=== PATIENT | female | born 1985 | race Caucasian/White ===

== ENCOUNTER 2018-02-02 09:00 | Outpatient (RCR) | payer MEDICAID, SELFPAY ==
--- NOTE | 2018-01-05 10:00 | PTTR_ITS ---
DATE: 01/05/18 SUBJECTIVE: Susan states that her back pain seems to be increasing. She attributes this to some changes that have been going on with her health in general. She has been seeing a natural path who placed her on a couple of different supplements. One of which caused her a great deal of anxiety. She states because of this, she was having trouble being regular with her exercise program and feels that this has contributed to an increase in her back pain. She is now off the supplement and is starting to feel better, stating she is trying to get back on track with her exercise program, as she feels good improvements with pain management with this. Manual therapy: ([id number]). Patient received deep tissue mobilization throughout the cervical and paraspinal musculature focused on L rhomboids and lower trap where she received skin rolling techniques and myofascial stretching. She also received modified suboccipital release and trigger point release to bilateral upper traps. IDN: for charles services; Received non-reimbursable charles payment dry needling as follows: PA's C3-T8 bilaterally, HAs spinal accessory bilaterally, suprascapular bilaterally, SAs upper trap bilaterally and L rhomboids. Direct treatment time: 30 mins Total treatment time: 30 mins SS/dl
--- NOTE | 2018-01-12 11:13 | PTTR_ITS ---
DATE: 01/12/18 SUBJECTIVE: Susan states that she has had ups and downs with her back. She feels that the exercises make a big difference, although she is concerned about whether this is going to be a correction issue for her. OBJECTIVE: Manual therapy: ([id number]).Pt received DTM throughout the parascapular musculature and into the cervical spine.She received trigger point release to the upper traps bilaterally, as well as grade IV thoracic spine mobilizations to the midthoracic segments. IDN: Pt received DN for charles services as follows: PAs C1-7 and T1-8 bilaterally , HAs, spinal accessory and suprascapular bilaterally, HAs bilateral upper traps and rhomboids in functionally internally rotated position, all performed bilaterally. Direct treatment time: 35 min Total treatment time: 35 min SS/fw
--- NOTE | 2018-01-18 08:00 | NT_ITS ---
01/17/18 Patient did not show for her appt SS/dl
--- NOTE | 2018-01-26 16:23 | PTTR_ITS ---
DATE: 01/26/18 SUBJECTIVE: Susan states that her back was incredibly painful last week. She , in fact, went and had an acupuncture session, although did not note any significant improvement with this. She went on vacation directly afterwards and states that during that week, she was essentially pain free.She attributes this to being in a different bed and also having a great deal of assistance with care for her son.She states that she was not sleeping in her normal position and wasn't carrying him or nursing him nearly as much as she typically would. OBJECTIVE: Manual therapy: ([id number]).We deferred on dry needling today and instead focused on manual mobilization and progression of her strengthening program as symptoms are well managed today.She received grade IV thoracic spine mobilizations, where she achieves cavitations at 2 levels with the mid-thoracic spine. She also received connective tissue mobilization through the paraspinals and scap thoracic joint mobilizations through all planes, eventually transitioning to a sustained lateral glide with good tolerance. Therapeutic procedures ([id number]).We reviewed pts HEP. She was able to perform a full plank position x 20 sec. with only need for only minimal tactile and verbal cues for cervical positioning and transverse abdominal activation. We reviewed her UE strengthening activities, which she is comfortable with, and understands she can progress to use of Therabrand. Also had her perform lifting activities, where again she requires verbal and tactile cues, although with excellent technique resulting. Will have her continue with these independently and follow-up next week for re-eval and progression. Direct treatment time: 30 min Total treatment time: 30 min SS/fw
== END 2018-02-02 23:59 | disposition home or self-care (01) ==
LOC: PT 09:00
PROVIDERS: PCP General Practice; Referring Provider Advanced Practice Midwife; Visit Provider Advanced Practice Midwife
DX: M54.6 Pain in thoracic spine (principal); M79.89 Other specified soft tissue disorders; M65.811 Other synovitis and tenosynovitis, right shoulder
CPT/HCPCS: 97110; 97140

== ENCOUNTER 2018-06-26 12:27 | Outpatient (REF) | payer MEDICAID, SELFPAY | END 2018-06-26 12:47 | LOC: LBN 12:27 | PROVIDERS: PCP General Practice; Visit Provider General Practice | DX: J02.9 Acute pharyngitis, unspecified (principal) | CPT/HCPCS: 87081 ==

== ENCOUNTER 2018-12-22 10:25 | Emergency (ER) | payer MEDICAID, SELFPAY ==
[2018-12-22 10:36] VITALS: BP 125/75; PULSE 82; RESP 16; TEMP 37.2; O2SAT 99
--- NOTE | 2018-12-22 11:22 | DI.CT_ITS ---
SYMPTOM/DIAGNOSIS: POSTERIOR RIGHT SHOULDER PAIN. CT ANGIOGRAPHY OF THE CHEST: Routine examination, no priors. There is no evidence of a pulmonary embolus. The thoracic aorta is of normal caliber. No aneurysm or dissection is seen. Heart size is within normal limits. No significant pericardial effusion is seen. No evidence of right ventricular dysfunction is present. No evidence of thoracic adenopathy, pleural effusion or pneumothorax is identified. The lungs are clear. Soft tissue is seen in the anterior mediastinum likely reflecting residual thymic tissue. The bones are intact. No acute upper abdominal abnormality is identified. IMPRESSION: No evidence of an acute pulmonary embolus, thoracic aortic dissection or aneurysm.
--- NOTE | 2018-12-22 11:22 | W.ED.GENAD ---
Discharge Plan Disposition Patient Disposition: HOME Discharge Details Chief Complaint: Orthopedic Clinical Impression: Right shoulder pain Primary Care Provider: Alejandro Gil ED Provider: Justino Aguirre Home Meds and New Rx's Prescriptions: Continued methadone 42 mg DAILY RF: 0 flaxseed oil RF: 0 ibuprofen 600 MG tablet 600 mg PO Q6H PRN PRN (Reason: Abdominal Pain) Qty: 30 RF: 1 Discharge Instructions Instructions: Shoulder Pain (ED) Additional Instructions: Please contact your primary care physician to arrange follow-up. Return to the ER for any worsening or new concerning symptoms. Referrals: Alejandro Gil MD [Primary Care Provider] - Discharge Data Discharge Date/Time-TO BE ENTERED AT DEPARTURE: 12/22/18 14:02 Medical Decision Making 33-year-old female here with 1 week of throbbing pain in her right scapula and shoulder. Abdominal exam is benign. Lungs clear to auscultation. Patient saturating well in no respiratory distress. Patient did have recent long distance travel. I considered pulmonary embolism given there is somewhat of a pleuritic component to pain. ECG reviewed and interpreted by me: Normal sinus rhythm 67 bpm, normal axis, occasional PVC -nondiagnostic. Labs reviewed and nondiagnostic. CT of the chest was interpreted by radiology: no specific etiology identified for the patient's symptoms. No evidence of pulmonary embolism. Pain was treated with lidocaine patch and Tylenol. On reassessment patient was resting comfortably in no distress. Results were reviewed with the patient. Patient was encouraged to follow-up with her primary care physician. Patient understands importance of timely follow-up. Encouraged to return for any worsening or new concerning symptoms. Lab Data Lab results reviewed: Yes I reviewed the patient's lab results. Laboratory Tests Range/Units 12/22/18 12/22/18 11:41 11:41 WBC (4.4-10.8) k/cumm 8.98 RBC (4.00-5.20) m/cumm 4.94 Hgb (12.0-15.5) g/dL 15.0 Hct (36.0-46.0) % 43.5 MCV (80-95) fL 88.1 MCH (27.0-33.0) pg 30.4 MCHC (32.0-36.0) g/dL 34.5 RDW (11.7-14.6) % 12.3 Plt Count (130-400) x1000/uL 236 MPV (8.0-11.0) fL 9.7 Immature Gran % 0.1 Neutrophils % 62.6 Lymphocytes % 31.2 Monocytes % 5.3 Eosinophils % 0.6 Basophils % 0.2 Absolute Neutrophils (1.2-6.7) k/cumm 5.62 Absolute Lymphocytes (1.2-3.4) k/cumm 2.80 Absolute Monocytes (0.11-0.7) k/cumm 0.48 Absolute Eosinophils (0.0-0.7) k/cumm 0.05 Absolute Basophils (0.0-0.2) k/cumm 0.02 Sodium (136-145) mmol/L 141 Potassium (3.5-5.1) mmol/L 3.9 Chloride (98-107) mmol/L 106 Carbon Dioxide (21.0-32.0) mmol/L 25.2 Anion Gap (3-11) mmol/L 9.8 BUN (7-18) mg/dL 14 Creatinine (0.55-1.02) mg/dL 0.79 Estimated GFR/1.73 m2 (mL/min/1.73m2) >= 60.00 Glucose (70-100) mg/dL 101 H Calcium (8.5-10.1) mg/dL 9.2 Magnesium (1.8-2.4) mg/dL 2.0 Total Bilirubin (0.2-1.0) mg/dL 0.4 AST (15-37) U/L 7 L ALT (12-78) U/L 19 Alkaline Phosphatase (46-116) U/L 68 Troponin I (0.00-0.06) ng/mL < 0.05 Total Protein (6.4-8.2) g/dL 7.5 Albumin (3.4-5.0) g/dL 4.2 HPI General Mode of arrival: ambulatory. Date/Time Provider Initiated Documentation: 12/22/18 11:06. Limitations to Documentation: no limitations. Information obtained by: patient. HPI Narrative: 33-year-old female presents with chief complaint of with pain in her right scapula and shoulder. Pain started about a week ago and has persisted. Pain is described as throbbing. Pain worse with certain positions of her right arm. Patient does not recall any specific trauma. She does note that she had recent long distance travel and discomfort started after this travel. She has no associated shortness of breath but does note that the pain seems to be in her right posterior lateral upper chest and shoulder blade as well intermittently. No leg swelling or calf pain. No abdominal pain. Related Data Home Medications Medication Instructions Recorded Confirmed Methadone 42 mg DAILY 07/31/15 12/22/18 Flaxseed Oil 02/24/17 06/11/18 ibuprofen 600 mg PO Q6H PRN PRN #30 tab 08/09/17 12/22/18 Previous Rx's Medication Instructions Recorded ibuprofen 600 mg PO Q6H PRN PRN #30 tab 08/09/17 Allergies Allergy/AdvReac Type Severity Reaction Status Date / Time No Known Allergies Allergy Unverified 12/22/18 10:40 General Stated Complaint: Orthopedic KENDRA: 3 Review of Systems Review of Systems All systems reviewed & are unremarkable except as noted in HPI and below Cardiovascular Denies chest pain Respiratory Reports as per HPI, Denies cough and Denies hemoptysis Gastrointestinal Reports as per HPI Musculoskeletal Reports as per HPI Integumentary/Breasts Denies rash [facility] Medical History Oligomenorrhea Opiate dependence PCO (polycystic ovaries) Surgical History section (08/06/17) Dilation and curettage Family History Grandmother Endometriosis Maternal Aunt Endometriosis Maternal Aunt Endometriosis Grandfather Myocardial infarction Mother Substance abuse Alcohol abuse Father No problems noted. Sister Mental disorder Sister No problems noted. Sister No problems noted. Sister No problems noted. Brother Substance abuse Alcohol abuse Brother No problems noted. Brother No problems noted. Social History Smoking/Tobacco Use Status: Current every day Tobacco Type: cigarettes Alcohol Intake: never Drug use: Never Substance use type: does not use Do you feel safe at home: Yes Do you feel safe in your relationship?: Yes Exam Const General: cooperative and no acute distress HENMT Head: normocephalic Mouth: moist mucous membranes Eyes Conjunctivae: normal conjunctivae Sclera: normal sclerae Neck Neck: trachea midline and supple Resp Auscultation: clear to auscultation bilaterally, no rales, no rhonchi and no wheezes Cardio Jugular venous pressure: no JVD Rate: regular rate and not tachycardic Rhythm: regular rhythm GI Palpation: soft, not firm, no guarding, no masses, not rigid and nontender Skin General skin exam: no rashes or lesions noted Neuro General: alert, awake, oriented x3 and tone normal Extrem General: no calf tenderness and no edema Right upper extremity: shoulder/upper arm (Pain with shoulder elevation and abduction ) Psych Appearance: grossly normal Affect: anxious affect Course Vital Signs Temperature 37.2 C 12/22/18 10:36 Pulse 82 12/22/18 10:36 Respiratory Rate 16 12/22/18 10:36 Blood Pressure 125/75 12/22/18 10:36 Pulse Oximetry 99 12/22/18 10:36 Temperature 37.2 C 12/22/18 10:36 Temperature Source Temporal Artery Scan 12/22/18 10:36 Pulse 82 12/22/18 10:36 Respiratory Rate 16 12/22/18 10:36 Respiratory Effort Non-Labored 12/22/18 10:38 Blood Pressure 125/75 12/22/18 10:36 Pulse Oximetry 99 12/22/18 10:36 Oxygen Delivery Method Room Air 12/22/18 10:36 Oxygen Flow Rate 0 12/22/18 10:36 Pain Level 8 12/22/18 10:36
[2018-12-22] MEDS: Acetaminophen 325 MG TAB 650 MG PO (11:34)
[2018-12-22] MEDS: Lidocaine 5% Patch 1 PATCH TP (11:34)
--- NOTE | 2018-12-22 11:45 | NUR.NOTE ---
iv placed ekg performed Nursing Note:
[2018-12-22 11:49] LABS: Abs Immature Grans 0.01 k/cumm (0.0-0.09); Absolute Basophil Count 0.02 k/cumm (0.0-0.2); Absolute Eosinophil Count 0.05 k/cumm (0.0-0.7); Absolute Monocyte Count 0.48 k/cumm (0.11-0.7); Absolute Neutrophil Count 5.62 k/cumm (1.2-6.7); Basophils % 0.2; Eosinophils % 0.6; HCT 43.5 % (36.0-46.0); Immature Grans % 0.1; Lymphocytes % 31.2; Mean Corp. HGB Concentration 34.5 g/dL (32.0-36.0); Mean Corpuscular Hemoglobin 30.4 pg (27.0-33.0); Mean Corpuscular Volume 88.1 fL (80-95); Mean Platelet Volume 9.7 fL (8.0-11.0); Monocytes % 5.3; Neutrophils % 62.6; Platelet Count 236 x1000/uL (130-400); RBC 4.94 m/cumm (4.00-5.20); RBC Distribution Width 12.3 % (11.7-14.6); White Blood Cell Count 8.98 k/cumm (4.4-10.8)
[2018-12-22 12:07] LABS: ALT 19 U/L (12-78); AST 7 U/L (15-37); Albumin 4.2 g/dL (3.4-5.0); Alkaline Phosphatase 68 U/L (46-116); Anion Gap 9.8 mmol/L (3-11); BUN 14 mg/dL (7-18); Bilirubin, Total 0.4 mg/dL (0.2-1.0); CO2 25.2 mmol/L (21.0-32.0); CREATININE 0.79 mg/dL (0.55-1.02); Calcium 9.2 mg/dL (8.5-10.1); Chloride 106 mmol/L (98-107); Glucose 101 mg/dL (70-100); Potassium 3.9 mmol/L (3.5-5.1); Sodium 141 mmol/L (136-145); Total Protein 7.5 g/dL (6.4-8.2)
[2018-12-22 12:17] LABS: Troponin I < 0.05 ng/mL (0.00-0.06)
--- NOTE | 2018-12-22 13:31 | DI.VRAD_ITS ---
EXAM: CT Angiography Chest With Contrast EXAM DATE/TIME: 12/22/2018 11:25 AM CLINICAL HISTORY: 33 years old, female; Other: Posterior right shoulder pain TECHNIQUE: Imaging protocol: Axial computed tomographic angiography images of the chest with intravenous contrast using CT angiography protocol. Coronal and sagittal reformatted images were created and reviewed. 3D rendering: MIP reconstructed images were created and reviewed. Contrast material: OMNI 350; Contrast volume: 100 ml; Contrast route: IV; COMPARISON: No relevant prior studies available. FINDINGS: No evidence of PE. No significant focal consolidation. No pleural effusion. No pneumothorax. No adenopathy. Unremarkable upper abdomen. No acute mediastinal or aortic abnormality. IMPRESSION: No specific etiology identified for the patient's symptoms. Dictated and Authenticated by: Chandan Jo MD. Ordering:EFFIE Badillo MD
== END 2018-12-22 14:02 | disposition home or self-care (01) ==
PROVIDERS: Emergency Provider Student in an Organized Health Care Education/Training Program; PCP General Practice
DX: M25.511 Pain in right shoulder (principal)
CPT/HCPCS: 71275; 80053; 81025; 93005; 99285; 83735; 84484; 85025; 93010; 99284

== ENCOUNTER 2019-11-20 03:43 | Outpatient (CLI) | payer MEDICAID, SELFPAY ==
[2019-11-20 15:08] LABS: Abs Immature Grans 0.01 k/cumm (0.0-0.09); Absolute Basophil Count 0.01 k/cumm (0.0-0.2); Absolute Eosinophil Count 0.11 k/cumm (0.0-0.7); Absolute Lymphocyte Count 3.35 k/cumm (1.2-3.4); Absolute Monocyte Count 0.52 k/cumm (0.11-0.7); Absolute Neutrophil Count 4.21 k/cumm (1.2-6.7); Basophils % 0.1; Eosinophils % 1.3; HGB 15.2 g/dL (12.0-15.5); Immature Grans % 0.1 %; Lymphocytes % 40.8; Mean Corp. HGB Concentration 34.5 g/dL (32.0-36.0); Mean Corpuscular Hemoglobin 30.5 pg (27.0-33.0); Mean Corpuscular Volume 88.4 fL (80-95); Mean Platelet Volume 9.8 fL (8.0-11.0); Monocytes % 6.3; Neutrophils % 51.4; Platelet Count 271 x1000/uL (130-400); RBC 4.98 m/cumm (4.00-5.20); RBC Distribution Width 12.2 % (11.7-14.6); White Blood Cell Count 8.21 k/cumm (4.4-10.8)
[2019-11-20 16:05] LABS: Iron 94 ug/dL (50-170); Total Iron Binding Capacity 329 ug/dL (250-450); Transferrin Sat 29 % (15-50)
[2019-11-20 16:26] LABS: ALT 24 U/L (14-59); AST 15 U/L (15-37); Albumin 4.3 g/dL (3.4-5.0); Alkaline Phosphatase 64 U/L (46-116); Anion Gap 8.9 mmol/L (3-11); BUN 10 mg/dL (7-18); Bilirubin, Total 0.4 mg/dL (0.2-1.0); CO2 29.1 mmol/L (21.0-32.0); CREATININE 1.06 mg/dL (0.55-1.02); Calcium 8.9 mg/dL (8.5-10.1); Calculated LDL 103 mg/dL (<100); Chloride 102 mmol/L (98-107); Cholesterol 169 mg/dL (<200); Ferritin 21 ng/mL (8-252); Glucose 109 mg/dL (74-106); HDL Cholesterol 39 mg/dL (40-60); Magnesium 2.1 mg/dL (1.8-2.4); Potassium 4.2 mmol/L (3.5-5.1); Sodium 140 mmol/L (136-145); T4 9.3 ug/mL (4.7-13.3); TSH 1.71 uIU/mL (0.36-3.74); Total Protein 7.2 g/dL (6.4-8.2); Triglyceride 138 mg/dL (<150); Vitamin B12 712 pg/mL (193-986)
[2019-11-20 16:34] LABS: Folate > 20.0 ng/mL (8.6-20.0)
[2019-11-20 16:50] LABS: FREE T4 1.27 ng/dL (0.76-1.46)
[2019-11-20 22:00] LABS: T3,Free 4.7 pg/mL (2.8-5.3)
[2019-11-20 22:14] LABS: T3, Total 154 ng/dL (97-169)
[2019-11-21 09:59] LABS: Lyme Ab w Rflx to Lyme Confirm Negative (Negative)
[2019-11-22 10:19] LABS: Lipoprotein (a) 12 mg/dL (<=30)
[2019-11-23 02:00] LABS: Anaplasma phagocytophilum Negative (Negative); B. miyamotoi PCR Negative (Negative); Babesia divergens/MO-1 Negative (Negative); Babesia duncani Negative (Negative); Babesia microti Negative (Negative); Ehrlichia chaffeensis Negative (Negative); Ehrlichia ewingii/canis Negative (Negative); Ehrlichia muris eauclairensis Negative (Negative)
== END 2019-11-20 04:03 ==
PROVIDERS: PCP Nurse Practitioner Adult Health; Visit Provider Naturopath
DX: R51 Headache (principal); R53.83 Other fatigue; Z13.220 Encounter for screening for lipoid disorders
CPT/HCPCS: 36415; 80053; 80061; 83695; 87798; 82607; 82728; 82746; 83540; 83550; 83735; 84436; 84439; 84443; 84480; 84481; 85025; 86618

== ENCOUNTER 2019-11-25 11:09 | Outpatient (REF) | payer MEDICAID, SELFPAY ==
--- NOTE | 2019-11-25 10:00 | PAPFT_PTH ---
PATIENT: Susan Araiza LOC: [facility] U#:[id number] AGE/SX: 33/F ROOM: RE11/25/[address]: RANDA Tellez : 1985 BED: DIS: 11/25/2019 SPEC #: [id number] RECD: 11/25/19 12:54 STATUS: LAM REQ #: [id number] KI: 11/25/19 10:[address]: Angela Plasencia DEPT: [facility] Cytology RECD BY: Ira Gonzalez ENTERED: 11/25/19 12:54 SP TYPE: PAPFT OT DR: Diana Pitts APRN Tissues: 1 - CX/ENDOCX FOR PAP SMEARS Procedures: PAP THIN PREP/UVM Screening HPV DNA PROBE Comments: [id number]
== END 2019-11-25 11:29 ==
LOC: LBN 11:09
PROVIDERS: PCP Nurse Practitioner Adult Health; Visit Provider Nurse Practitioner Family
DX: Z12.4 Encounter for screening for malignant neoplasm of cervix (principal); Z11.51 Encounter for screening for human papillomavirus (HPV)
CPT/HCPCS: 88142; 87624

== ENCOUNTER 2019-12-23 01:32 | Outpatient (CLI) | payer MEDICAID, SELFPAY ==
--- NOTE | 2019-12-23 08:45 | DI.MRI_ITS ---
EXAM: MR BRAIN WO CLINICAL HISTORY: new onset cognitive impairment, R41.89 TECHNIQUE: Multiplanar multisequence MRI of the brain was performed. COMPARISON: No exams were available for comparison FINDINGS: VENTRICLES AND EXTRA AXIAL SPACES: Normal in size and morphology for the patient's age. MIDLINE SHIFT: None. CEREBRAL PARENCHYMA: No focus of restricted diffusion to suggest acute infarct. No space-occupying le silvana identified. HEMORRHAGE: None. BRAINSTEM/CEREBELLUM: Normal. CALVARIUM: Normal. VISUALIZED PARANASAL SINUSES/MASTOIDS:Small mucous retention cyst or polyp in the inferior aspect of the left maxillary sinus. The sinuses are otherwise clear. ROBINSON OF [place]DS: Normal flow void. PITUITARY GLAND: Unremarkable. OTHER FINDINGS: None. IMPRESSION: Unremarkable MRI of the brain. DATA REPOSITORY:
== END 2019-12-23 01:52 ==
PROVIDERS: PCP Nurse Practitioner Adult Health; Visit Provider Nurse Practitioner Adult Health
DX: R41.89 Other symptoms and signs involving cognitive functions and awareness (principal)
CPT/HCPCS: 70551

== ENCOUNTER 2020-08-10 03:46 | Outpatient (CLI) | payer MEDICAID, SELFPAY ==
[2020-08-11 12:49] LABS: COVID-19 RT-PCR UVMMC Result Negative (Negative)
== END 2020-08-10 03:47 | disposition home or self-care (01) ==
LOC: LBO 03:46
PROVIDERS: PCP Nurse Practitioner Adult Health; Visit Provider Nurse Practitioner Adult Health
DX: Z20.822 Contact with and (suspected) exposure to COVID-19 (principal); J31.0 Chronic rhinitis
CPT/HCPCS: U0003

== ENCOUNTER 2020-11-09 04:43 | Outpatient (CLI) | payer MEDICAID, SELFPAY ==
[2020-11-09 09:02] LABS: ESR < 1 mm/hr (0-20)
[2020-11-09 09:39] LABS: Iron 90 ug/dL (50-170); Total Iron Binding Capacity 331 ug/dL (250-450); Transferrin Sat 27 % (15-50)
[2020-11-09 09:40] LABS: Vitamin D 25 Total 26.2 ng/mL (30-100)
[2020-11-09 10:01] LABS: ALT 33 U/L (14-59); AST 20 U/L (15-37); Albumin 4.1 g/dL (3.4-5.0); Alkaline Phosphatase 73 U/L (46-116); Anion Gap 9.5 mmol/L (3-11); BUN 12 mg/dL (7-18); Bilirubin, Total 0.5 mg/dL (0.2-1.0); CO2 27.5 mmol/L (21.0-32.0); CREATININE 0.9 mg/dL (0.55-1.02); Calcium 9.1 mg/dL (8.5-10.1); Chloride 105 mmol/L (98-107); Ferritin 19 ng/mL (8-252); Glucose 92 mg/dL (74-106); Magnesium 1.9 mg/dL (1.8-2.4); Potassium 4.3 mmol/L (3.5-5.1); Sodium 142 mmol/L (136-145); TSH 1.09 uIU/mL (0.36-3.74); Total Protein 7.1 g/dL (6.4-8.2); Vitamin B12 667 pg/mL (193-986)
[2020-11-09 10:02] LABS: HCG Quant, Pregnancy < 1 mIU/mL (1-3)
[2020-11-09 10:18] LABS: Creatine Kinase 85 U/L (26-192); FREE T4 0.93 ng/dL (0.76-1.46)
[2020-11-09 16:38] LABS: Rheumatoid Factor <8.6 IU/mL (<12.0)
[2020-11-10 10:54] LABS: Hepatitis C Ab w Rflx HCV PCR Negative (Negative)
[2020-11-10 11:29] LABS: Syphilis Serology (RPR) Negative (Negative)
[2020-11-10 14:24] LABS: ANA Interpretation Positive (Negative); ANA Titer Pattern 1:80 Speckled
== END 2020-11-09 04:44 | disposition home or self-care (01) ==
LOC: LBO 04:43
PROVIDERS: PCP Nurse Practitioner Adult Health; Visit Provider Physical Medicine & Rehabilitation
DX: M79.18 Myalgia, other site (principal); R53.83 Other fatigue; G47.9 Sleep disorder, unspecified; E61.1 Iron deficiency; E55.9 Vitamin D deficiency, unspecified; M89.8X8 Other specified disorders of bone, other site; Z01.84 Encounter for antibody response examination
CPT/HCPCS: 36415; 80053; 82306; 82550; 85652; 86803; 82607; 82728; 82746; 83540; 83550; 83735; 84439; 84443; 84481; 84702; 86038; 86431; 86592

== ENCOUNTER 2020-12-04 02:21 | Outpatient (CLI) | payer MEDICAID, SELFPAY ==
[2020-12-04 10:06] LABS: Abs Immature Grans 0.02 10^3/uL (0.0-0.06); Absolute Basophil Count 0.04 10^3/uL (0.0-0.2); Absolute Eosinophil Count 0.07 10^3/uL (0.0-0.7); Absolute Lymphocyte Count 2.67 10^3/uL (1.2-3.4); Absolute Monocyte Count 0.53 10^3/uL (0.1-0.8); Absolute Neutrophil Count 4.94 10^3/uL (1.2-6.7); Basophils % 0.5; Eosinophils % 0.8; HCT 43.6 % (36.0-46.0); HGB 14.8 g/dL (11.2-15.7); Immature Grans % 0.2; Lymphocytes % 32.3; MCH 29.9 pg (27.0-33.0); MCHC 33.9 % (32.0-36.0); MCV 88.1 fL (80-95); MPV 9.4 fL (8.0-11.0); Monocytes % 6.4; Neutrophils % 59.8; Nucleated RBC 0 %; Platelet Count 239 10^3/uL (130-400); RBC 4.95 10^6/uL (3.93-5.22); RDW 11.4 % (11.7-14.6); RDW-SD 36.9 fL; WBC 8.27 10^3/uL (4.4-10.8)
[2020-12-04 10:56] LABS: Iron 144 ug/dL (50-170); Total Iron Binding Capacity 335 ug/dL (250-450); Transferrin Sat 43 % (15-50)
[2020-12-04 10:57] LABS: Creatine Kinase 103 U/L (26-192)
== END 2020-12-04 02:22 | disposition home or self-care (01) ==
LOC: LBO 02:21
PROVIDERS: PCP Nurse Practitioner Adult Health; Visit Provider Physical Medicine & Rehabilitation
DX: M79.18 Myalgia, other site (principal); R53.83 Other fatigue; E61.1 Iron deficiency; G47.9 Sleep disorder, unspecified; E55.9 Vitamin D deficiency, unspecified; M89.8X8 Other specified disorders of bone, other site
CPT/HCPCS: 36415; 82550; 83540; 83550; 85025

== ENCOUNTER 2021-03-19 10:56 | Outpatient (REF) | payer MEDICAID, SELFPAY ==
[2021-03-22 15:23] LABS: Chlamydia Result Negative (Negative); GC Result Negative (Negative)
== END 2021-03-19 10:57 | disposition home or self-care (01) ==
LOC: LBN 10:56
PROVIDERS: PCP Nurse Practitioner Adult Health; Visit Provider Nurse Practitioner Family
DX: Z11.3 Encounter for screening for infections with a predominantly sexual mode of transmission (principal)
CPT/HCPCS: 87491; 87591

== ENCOUNTER 2021-03-29 15:39 | Outpatient (REF) | payer MEDICAID, SELFPAY ==
[2021-03-31 14:29] LABS: COVID-19 RT-PCR UVMMC Result Negative (Negative)
== END 2021-03-29 15:40 | disposition home or self-care (01) ==
LOC: LBN 15:39
PROVIDERS: PCP Nurse Practitioner Adult Health; Visit Provider Family Medicine
DX: J02.9 Acute pharyngitis, unspecified (principal); Z20.822 Contact with and (suspected) exposure to COVID-19
CPT/HCPCS: U0003; 87070

== ENCOUNTER 2021-09-16 02:15 | Outpatient (CLI) | payer MEDICAID, SELFPAY | END 2021-09-16 02:16 | disposition home or self-care (01) | LOC: LBO 02:15 | PROVIDERS: PCP Nurse Practitioner Adult Health; Visit Provider Naturopath ==

== ENCOUNTER 2021-09-23 02:40 | Outpatient (CLI) | payer MEDICAID, SELFPAY ==
[2021-09-23 15:45] LABS: Abs Immature Grans 0.02 10^3/uL (0.0-0.06); Absolute Basophil Count 0.03 10^3/uL (0.0-0.2); Absolute Eosinophil Count 0.17 10^3/uL (0.0-0.7); Absolute Lymphocyte Count 3.25 10^3/uL (1.2-3.4); Absolute Monocyte Count 0.44 10^3/uL (0.1-0.8); Basophils % 0.4; Eosinophils % 2.1; HGB 14.3 g/dL (11.2-15.7); Immature Grans % 0.2; Lymphocytes % 40.6; MCH 29.4 pg (27.0-33.0); MCHC 33.3 % (32.0-36.0); MCV 88.3 fL (80-95); MPV 9.9 fL (8.0-11.0); Monocytes % 5.5; Neutrophils % 51.2; Platelet Count 238 10^3/uL (130-400); RBC 4.87 10^6/uL (3.93-5.22); RDW 11.9 % (11.7-14.6); RDW-SD 38.8 fL; WBC 8.01 10^3/uL (4.4-10.8)
[2021-09-23 16:32] LABS: ALT 19 U/L (14-59); AST 14 U/L (15-37); Albumin 3.8 g/dL (3.4-5.0); Alkaline Phosphatase 76 U/L (46-116); Anion Gap 0.3 mmol/L (3-11); BUN 15 mg/dL (7-18); Bilirubin, Total 0.4 mg/dL (0.2-1.0); CO2 28.7 mmol/L (21.0-32.0); CREATININE 0.8 mg/dL (0.55-1.02); Calcium 8.5 mg/dL (8.5-10.1); Chloride 103 mmol/L (98-107); Ferritin 20 ng/mL (8-252); Glucose 106 mg/dL (74-106); Potassium 3.2 mmol/L (3.5-5.1); Sodium 132 mmol/L (136-145); Total Protein 6.5 g/dL (6.4-8.2); Vitamin B12 1131 pg/mL (193-986)
[2021-09-23 17:11] LABS: FREE T4 0.93 ng/dL (0.76-1.46)
[2021-09-23 17:44] LABS: Iron 209 ug/dL (50-170); Total Iron Binding Capacity 256 ug/dL (250-450)
[2021-09-23 18:07] LABS: Vitamin D 25 Total 31.6 ng/mL (30-100)
== END 2021-09-23 02:41 | disposition home or self-care (01) ==
LOC: LBO 02:40
PROVIDERS: PCP Nurse Practitioner Adult Health; Visit Provider Naturopath
DX: R53.83 Other fatigue (principal); Z79.899 Other long term (current) drug therapy; E55.9 Vitamin D deficiency, unspecified
CPT/HCPCS: 36415; 80053; 82306; 82607; 82728; 83540; 83550; 84439; 84443; 84481; 85025

== ENCOUNTER 2021-10-21 03:34 | Outpatient (CLI) | payer MEDICAID, SELFPAY ==
[2021-10-21 17:28] LABS: ALT 22 U/L (14-59); AST 17 U/L (15-37); Alkaline Phosphatase 80 U/L (46-116); Anion Gap 7.8 mmol/L (3-11); BUN 13 mg/dL (7-18); Bilirubin, Total 0.3 mg/dL (0.2-1.0); CO2 27.2 mmol/L (21.0-32.0); Calcium 8.9 mg/dL (8.5-10.1); Chloride 104 mmol/L (98-107); Glucose 116 mg/dL (74-106); Potassium 3.7 mmol/L (3.5-5.1); Sodium 139 mmol/L (136-145); Total Protein 6.7 g/dL (6.4-8.2)
== END 2021-10-21 03:35 | disposition home or self-care (01) ==
LOC: LBO 03:34
PROVIDERS: PCP Nurse Practitioner Adult Health; Visit Provider Naturopath
DX: E87.8 Other disorders of electrolyte and fluid balance, not elsewhere classified (principal)
CPT/HCPCS: 36415; 80053

== ENCOUNTER → 2022-03-23 01:25 | Outpatient (CLI) | payer MEDICAID, SELFPAY ==
--- NOTE | 2022-03-23 06:45 | DI.US_ITS ---
Exam(s) US ABDOMEN EXAM: US ABDOMEN CLINICAL HISTORY: upper abdominal pain,R10.9 TECHNIQUE: Ultrasound of complete upper abdomen performed using standard protocol. COMPARISON: US BIOPHYSICAL PROFILE AND LTD OB from 07/28/2017 FINDINGS: There is no ascites evident. LIVER: There are no hepatic lesions evident nor obvious dilatation of intrahepatic ducts. GALLBLADDER/BILIARY: There are multiple small gallstones in the gallbladder lumen layering on the dep endent wall. Gallbladder wall is not edematous and there is no pericholecystic fluid. The common hepatic duct isnot dilated, measuring 2-3mm at the level of naima hepatis. PANCREAS: There is no evidence of pancreatic mass nor dilatation of the pancreatic duct. SPLEEN: The spleen is not enlarged and there are no intrasplenic lesions evident. KIDNEYS:Kidneys exhibit normal size with no evidence of solid mass, cyst, nor calculi. However, ther e appears to be mild bilateral hydronephrosis. ABDOMINAL AORTA: There is no evidence of abdominal aortic aneurysm. IVC: Normal diameter where visualized. IMPRESSION: 1. Cholelithiasis. Multiple gallstones are noted in the gallbladder lumen. Gallbladder does not ap pear edematous and biliary tree is not significantly dilated. The patient was also not very tender o sita this area during scanning today. 2. There appears to be mild symmetrical bilateral hydronephrosis. This requires follow-up. 3. There is no ascites. DATA REPOSITORY:
== END ==
PROVIDERS: PCP Nurse Practitioner Adult Health; Visit Provider Nurse Practitioner
DX: K80.20 Calculus of gallbladder without cholecystitis without obstruction (principal)
CPT/HCPCS: 76700

== ENCOUNTER → 2022-03-24 02:48 | Outpatient (CLI) | payer MEDICAID, SELFPAY ==
--- NOTE | 2022-03-24 06:45 | DI.US_ITS ---
Exam(s) US RENAL EXAM: US RENAL CLINICAL HISTORY: B hydronephrosis seen on abdominal US,n13.30 TECHNIQUE: Ultrasound performed using standard protocol. COMPARISON: US BIOPHYSICAL PROFILE AND LTD OB from 07/28/[address] CHEST PE CTA from 12/22/2018 FINDINGS: Renal ultrasound was performed according to the usual protocol. The kidneys are normal in size and s hape. There is 14 millimeter in diameter right inferior pole renal simple cyst. No other renal mass identified. There is appearance suggesting mild bilateral caliceal dilatation, question mild bilateral hydronephr osis. Ureteral jets are noted bilaterally. Urinary bladder is unremarkable in appearance with pre and post void urinary bladder volume 161 cc and 0 cc respectively. IMPRESSION: Question mild bilateral hydronephrosis, correlation with CT urogram suggested if clinically appropria te. DATA REPOSITORY:
== END ==
PROVIDERS: PCP Nurse Practitioner Adult Health; Visit Provider Nurse Practitioner
DX: N13.30 Unspecified hydronephrosis (principal)
CPT/HCPCS: 76770

== ENCOUNTER 2022-03-31 11:47 | Day surgery (SDC) | payer MEDICAID, SELFPAY ==
--- NOTE | 2022-03-30 21:46 | PDOC.DSDIS_ITS ---
Date of service: 03/31/22 Time of Service: 13:21 Discharge Plan Disposition Patient Disposition: HOME Condition: Good Discharge Details Reason For Visit: EGD Attending Provider: Frank Love Primary Care Provider: Diana Pitts Home Meds and New Rx's Prescriptions: Continued flaxseed oil 1,000 mg capsule 1,000 mg PO DAILY Rx Instructions: administer with a meal methadone 31 mg PO DAILY Label Comments: Working on titrating; wants to decrease Rx Instructions: [facility] 01/13/21 37 mg nystatin 500,000 unit tablet See Rx Instructions PO TID Rx Instructions: 0.5 tab bid, and 1 tab qd PO three times a day; folic acid 1 mg tablet 0.5 mg PO DAILY magnesium PO .qd Probiotic 3 billion cell capsule 3,000 mmu cells PO DAILY Rx Instructions: administer with a meal omeprazole 40 mg capsule,delayed release(DR/EC) 40 mg PO DAILY Qty: 28 0RF sucralfate 1 gram tablet 1 g PO QACHS Qty: 112 0RF cholecalciferol (vitamin D3) 25 mcg/drop ( 1,000 unit/drop) drops 1,000 unit PO DAILY Discharge Instructions Additional Instructions: 1. If tolerated, consume a soft, low fiber diet for 1-2 days. [address] Do not drive, drink alcohol, operate machinery, make critical decisions, or do activities that require coordination or balance for 24 hours. 3. You may experience a sore throat for 24 to 48 hours. You may use throat lozenges or gargle with warm salt water to relieve the discomfort. 4. Because air was put into your stomach during the procedure, you may experience some belching. 5. Go directly to the emergency room if you notice any of the following: Develop chills (warm to touch), or if you have a thermometer and your temperature is above 101 Difficulty breathing or difficultly swallowing Persistent vomiting Severe abdominal pain, other than gas cramps Severe chest pain Black, tarry stools Any bleeding ? exceeding one tablespoon 6. Call your physician if the site where your intravenous was started becomes red, swollen, painful, and warm to touch. 7. Your physician has reviewed your pre-procedure medications. Please continue to take those medications as previously ordered. You will be given specific information/education regarding any changes to your medications before leaving. Activity:: Activity as Tolerated Diet:: As Tolerated Discharge Orders Discharge Orders: Discharge Order (Routine); Ordered 03/30/22 Ordered By: Frank Love DS: Diagnosis Discharge Diagnosis (1) Esophageal polyp: Status: Acute Asessment and Plan: I will contact you with results of the pathology report
--- NOTE | 2022-03-30 21:47 | ENDO_ITS ---
Date of service: 03/31/22 Time of Service: 13:21 Endoscopy Report DATE OF PROCEDURE: 03/31/22 PRE-OP DIAGNOSIS: Epigastric pain POST-OP DIAGNOSIS: other (Esophageal polyp) PROCEDURE: Esophagogastroduodenoscopy SURGEON: Frank Love ANESTHESIA TYPE: General:No Airway ESTIMATED BLOOD LOSS: 20 PATHOLOGY: other (Esophageal polyp at 25 cm from the incisors, esophageal polyp at 19 cm. Biopsies of duodenum and stomach) COMPLICATIONS: None DISPOSITION: same day INDICATIONS: Patricia is a 36-year-old woman with increasing midepigastric pain despite treatment of gastroesophageal reflux disease. PROCEDURE START TIME: 12:59 PROCEDURE END TIME: 13:08 FINDINGS: Esophageal polyps at 25 and 19 cm PROCEDURE DESCRIPTION: After the initiation of monitored anesthetic care, and with the assistance of a bite block, I advanced a standard gastroscope through the mouth past the hypopharynx and into the esophagus.? Under the direct vision of the scope, I advanced down the esophagus into the stomach.? Once I entered the stomach, I performed a brief inspection, followed by retroflexion towards the gastric cardia.? This appeared normal.? After that, I gently advanced the scope around the incisura angularis and examined the pylorus.? This also appeared normal.? Next, I advanced the scope through the pylorus into the duodenum.? The mucosa was pink and healthy appearing.? There were no abnormalities.? I was able to visualize bile draining into the duodenum through the ampulla Vater. I performed random biopsies of the duodenum. ?Next, I began retracting the endoscope.? Again, I returned to the stomach which was carefully examined. There was no obvious pathology. I performed random biopsies of the gastric antrum as well as the body I then gently desufflated some of the stomach, and withdrew the endoscope into the distal esophagus. The Z-line was normal- appearing around 38 cm. around 25 cm from the incisors, there was a 0.75 pedunculated polyp. I performed a polypectomy using cold forceps. There was no significant bleeding. A similar polyp was identified at 19 cm from the incisors. Similarly, I used cold forceps to perform polypectomy. Finally, I withdrew the scope along the length of the esophagus taking great care to examine the entirety of the mucosa.? I did not appreciate any abnormalities.
[2022-03-31 12:08] VITALS: BP 129/78; PULSE 68; RESP 16; TEMP 36.7; O2SAT 99
[2022-03-31] MEDS: Lactated Ringers 1,000 ML 80 ML IV (12:35)
[2022-03-31 12:52] VITALS: BMI 26.3
--- NOTE | 2022-03-31 12:52 | W.ANESPRE ---
General Info Date of Service Date Performed: 03/31/22 Height: 5 ft 1.5 in Weight: 64.2 kg Body Mass Index (BMI): 26.3 Surgical Procedure: Operation Date: 03/31/22 11:50 Proposed Procedure Side Surgeon p Gastroscopy Frank Love MD Actual Procedure Side Surgeon p Gastroscopy Not Applicable Frank Love MD Pre-Op Diagnosis Post-Op Diagnosis Abdominal pain Meds Allergies and Home Medications Allergies Allergy/AdvReac Type Severity Reaction Status Date / Time No Known Allergies Allergy Verified 03/31/22 12:02 Home Medication Medication Instructions Recorded folic acid 1 mg tablet 0.5 mg PO DAILY 01/13/21 lactobacillus combination no.4 3 3,000 mmu cells PO DAILY 01/13/21 billion cell capsule (Probiotic) magnesium PO .qd 01/13/21 nystatin 500,000 unit tablet See Rx Instructions PO TID 01/13/21 cholecalciferol (vitamin D3) 25 1,000 unit PO DAILY 03/10/21 mcg/drop (1,000 unit/drop) oral drops omeprazole 40 mg capsule,delayed 40 mg PO DAILY #28 caps 02/23/22 release sucralfate 1 gram tablet 1 g PO QACHS #112 tabs 02/23/22 flaxseed oil 1,000 mg capsule 1,000 mg PO DAILY 03/28/22 methadone 31 mg PO DAILY 03/28/22 Current Visit Medications: Current Medications Generic Name Dose Route Start Last Admin Trade Name Freq PRN Reason Stop Dose Admin Hyoscyamine Sulfate 0.125 mg 03/30/22 21:48 Hyoscyamine 0.125 Mg Sl/Oral/Chew SL DIRECTED PRN Ringer's Solution 1,000 mls @ 80 mls/hr 03/31/22 06:00 03/31/22 12:35 IV 03/31/22 23:59 80 mls/hr INFUSION TARAS Administration IV Miscellaneous Supplies 1 each 03/31/22 06:00 Iv Access IV 03/31/22 23:59 DIRECTED TARAS Ondansetron HCl 4 mg 03/30/22 21:48 Ondansetron 4 Mg/2 Ml Vial IVP Q4H PRN PRN Nausea / Vomiting Sodium Chloride 0 ml 03/31/22 06:00 Normal Saline Flush 10 Ml Syr IV 03/31/22 23:59 PRN PRN Sodium Chloride 0 ml 03/31/22 06:00 Normal Saline 10 Ml Vial IJ 03/31/22 23:59 DIRECTED PRN Sterile Water 0 ml 03/31/22 06:00 Water,Injection,Sterile 10 Ml Vial IJ 03/31/22 23:59 DIRECTED PRN PFSH Active Problems Active Problems: Problem Status Onset Code Abnormal renal ultrasound ~03/2022 R93.429 Abdominal pain R10.9 Contraception management Z30.9 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 Will manage expectantly. Pain in left toe(s) Podiatry referral 10/2019 Surgical History Surgical History section (08/06/17) PCD. [place] [id number] Pagan. [facility]. /[place]. Dilation and curettage Miscarriage 2006 Hammertoe of left foot (~03/09/20) Podiatry, Weeks Medical repair 08/20/20 Tobacco Smoking/Tobacco Use Status: Current every day Tobacco Type: cigarettes Passive smoking exposure: No Alcohol Alcohol Intake: never Substance Use Substance use: Never Substance use type: does not use Prental History History 3 Para Hx # Term Pregnancies 1 Multiple births Hx # Pregnancies Ectopic pregnancies AB induced Hx Number of Living Children 1 AB spontaneous 2 Vital Signs and Lab Results Vital Signs Most Recent Vital Signs in EMR: Most Recent Vital Signs Temp Pulse Resp BP Pulse Ox 36.7 C 68 16 129/78 99 03/31/22 12:08 03/31/22 12:08 03/31/22 12:08 03/31/22 12:08 03/31/22 12:08 Point of Care Results Point of Care Results: POC- Test(urine) Negative 03/31/22 12:47 Lab Results Blood Type / Crossmatch: No Data to Display Complete Blood Count: No Data to Display Complete Metabolic Panel: No Data to Display Liver Function Panel: No Data to Display Coagulation Panel: No Data to Display Cardiac Panel: No Data to Display Arterial Blood Gas: No Data to Display Venous Blood Gas: No Data to Display Pancreas Panel: No Data to Display Thyroid Panel: No Data to Display Infectious Disease: No Data to Display Blood Cultures: No Data to Display Toxicology Panel: No Data to Display Panel: No Data to Display Anesthesia Assessment and Plan Anesthesia History Personal History: No History of Anesthesia Complications Family History: No Family History of Anesthesia Complications Exercise Tolerance Exercise Tolerance: Metabolic Equivalents>4 Pertinent Negatives Pertinent Negatives: No Symptoms of GERD, No Major Cardiovascular Symptoms or Complaints, No Major Pulmonary Symptoms or Complaints and No History of CVA/TIA Cardiac & Pulmonary Exam Cardiac Exam: Normal S1/S2 Heart Sounds Pulmonary Exam: Clear Bilateral Breath Sounds Implantable Cardiac Device Does patient have a Pacemaker or an ICD?: No Airway Exam Known Difficult Airway: No Mallampati Class: 2 Mouth Opening: Normal (> 3cm) Thyromental Distance: Greater than 3 cm Neck Range of Motion: Full ROM Neck Circumference: Normal Teeth Condition: Normal Dentition ASA Classification ASA Score: ASA 2 Emergency Case?: No NPO Status NPO Status: NPO Clears >2 hours, Solids >8 hours Status Status: Negative HCG Anesthesia Plan Resuscitation Status: Full Code Anesthesia Technique: General Anesthesia Airway Planned: Natural Airway Monitors Used: Standard Monitors
--- NOTE | 2022-03-31 13:01 | STOM_PTH ---
PATIENT: Susan Araiza LOC: [facility] U#:[id number] AGE/SX: 36/F ROOM: RE03/31/[address]: Frank Love MD : 1985 BED: DIS: 03/31/2022 SPEC #: [id number] RECD: 03/31/22 13:23 STATUS: LAM RE #: [id number] KI: 03/31/22 13:[address]: Frank Love DEPT: Surgical Specimen RECD BY: Ira Gonzalez ENTERED: 03/31/22 13:23 SP TYPE: STOMACH OTHR DR: Diana Pitts APRN Tissues: 1 - BIOPSY BOWEL 2 - STOMACH BIOPSY 3 - STOMACH BIOPSY 4 - ESOPHAGUS BIOPSY 5 - ESOPHAGUS BIOPSY Procedures: GROSS AND MICRO LEVEL 4 Comments: [id number]
[2022-03-31 13:18] VITALS: BP 106/46; PULSE 85; RESP 18; TEMP 36; O2SAT 96
--- NOTE | 2022-03-31 13:26 | W.ANESPOSTOP ---
Postoperative Evaluation Date, Time and Location Date Performed: 03/31/22 Time Performed: 13:26 Patient Location: Day Surgery Unit Vital Signs Most Recent Imported Vital Signs: Most Recent Vital Signs Temp Pulse Resp BP Pulse Ox 36.0 C L 85 18 106/46 L 96 03/31/22 13:18 03/31/22 13:18 03/31/22 13:18 03/31/22 13:18 03/31/22 13:18 Pain Score Most Recent Pain Score: Most Recent Pain Score Pain Level 0 03/31/22 12:08 Assessment Mental Status: Awake (Alert & Oriented to Patient Baseline) Airway and Respiratory Function: Patent airway with normal (patient baseline) respiratory exam Cardiovascular Function: Hemodynamically Stable Hydration Status: Adequately Hydrated Nausea & Vomiting: No Nausea or Vomiting Pain: Pt. Denies Any Pain Peripheral Nerve Block: Patient did not receive a nerve block
[2022-03-31 13:45] VITALS: BP 106/67; PULSE 63; RESP 16; TEMP 36.5; O2SAT 100
== END 2022-03-31 14:01 | disposition home or self-care (01) ==
PROVIDERS: PCP Nurse Practitioner Adult Health; Visit Provider Surgery
PROC: 0DJ68ZZ Inspection of Stomach, Via Natural or Artificial Opening Endoscopic (ICD-10-PCS; CPT 43235; principal; 2022-03-31 11:45)
DX: K22.81 Esophageal polyp (principal); R10.13 Epigastric pain
CPT/HCPCS: 43239; 81025; 88305

== ENCOUNTER → 2022-05-18 01:17 | Outpatient (CLI) | payer MEDICAID, SELFPAY ==
--- NOTE | 2022-05-18 07:45 | DI.CT_ITS ---
Exam(s) CT ABDOMEN PELVIS WO/W EXAM: CT ABDOMEN PELVIS WO/W CLINICAL HISTORY: ?B/L hydronephrosis on renal abd U/S,f/u abnl us,r93.429 TECHNIQUE: Imaging Protocol: Axial computed tomography images with coronal and sagittal reformatted images were created and reviewed CONTRAST MATERIAL: Intravenous: Omnipaque 350 Contrast volume:100 mL Oral: No COMPARISON: CT CT CHEST PE CTA from 12/22/2018 US US RENAL from 03/24/2022 FINDINGS: ABDOMEN: Lung Bases: Normal where visualized. Liver: Normal density. No measurable mass. Portal, Superior Mesenteric, and Splenic Veins: Unremarkable. Gallbladder and Biliary Tract: Gallstones are present. There is mild thickening and enhancement of t he gallbladder wall. There is a question of mild pericholecystic fluid. There is no biliary ductal dilatation. Pancreas: Normal density, no abnormal calcifications or inflammatory process. Spleen: Normal. Adrenals: No masses seen. Kidneys: Normal size, contour and axis. No radiodense stones or obstructive uropathy. There is a 1.5 cm simple cyst in the right kidney. No follow-up is recommended. Abdominal Aorta: Abdominal portion non-dilated. Bowel: No obstruction or bowel wall thickening. Appendix is unremarkable. Peritoneal Cavity: No ascites, collection or mesenteric inflammatory response. No free air. Lymph Nodes: Within normal limits. Bones: Within normal limits for the patient's age. Soft Tissues: Unremarkable. PELVIS: Bladder: The urinary bladder is incompletely distended but grossly unremarkable. Reproductive Organs: Unremarkable as visualized. Lymph Nodes: Within normal limits. Bones: Within normal limits for the patient's age. IMPRESSION: 1. There is no evidence of nephrolithiasis or hydronephrosis. No suspicious renal mass is seen. 2. The urinary bladder is incompletely distended limiting evaluation. No gross abnormalities identif ied. 3. Cholelithiasis. Mild gallbladder wall thickening and enhancement. Sonographic evaluation to excl ude the possibility of acute cholecystitis is recommended. Unexpected findings RADIATION DOSE DELIVERED: 1,885.86mGy.cm Total DLP 1,885.86mGy.cm Total DLP DATA REPOSITORY: All CT scans at this facility are submitted to the National Radiology Data Registry (NRDR) Dose Index Registry (DIR) with the [employer] (ACR). RADIATION OPTIMIZATION: All CT scans at this facility use at least one of these dose optimization te chniques: automated exposure control; mA and/or kV adjustment per patient size (includes targeted exa ms where dose is matched to clinical indication); or iterative reconstruction.
[2022-05-18] MEDS: Normal Saline - Diluent 50 ML VIAL IJ (15:45)
[2022-05-18] MEDS: Omnipaque 350 MG/ML 100 ML BTL IJ (16:00)
[2022-05-18] MEDS: Normal Saline Flush 10 ML SYR IVP (16:01)
== END ==
PROVIDERS: PCP Nurse Practitioner Adult Health; Visit Provider Nurse Practitioner Adult Health
DX: N13.30 Unspecified hydronephrosis (principal); R93.421 Abnormal radiologic findings on diagnostic imaging of right kidney; R93.422 Abnormal radiologic findings on diagnostic imaging of left kidney; K80.20 Calculus of gallbladder without cholecystitis without obstruction; N28.1 Cyst of kidney, acquired
CPT/HCPCS: 74178; J3490

== ENCOUNTER 2022-05-20 08:35 | Day surgery (SDC) | payer MEDICAID, SELFPAY ==
--- NOTE | 2022-05-19 17:17 | ANES.PREOP_ITS ---
General Info Date of Service Date Performed: 05/20/22 Height: 5 ft 1.5 in Weight: 64.63 kg Body Mass Index (BMI): 26.4 Surgical Procedure: Operation Date: 05/20/22 10:10 Proposed Procedure Side Surgeon p Cholecystectomy Laparoscopic possible Open Frank Love MD Meds Allergies and Home Medications Allergies Allergy/AdvReac Type Severity Reaction Status Date / Time No Known Allergies Allergy Verified 05/20/22 08:55 Home Medication Medication Instructions Recorded folic acid 1 mg tablet 0.5 mg PO DAILY 01/13/21 lactobacillus combination no.4 3 3,000 mmu cells PO DAILY 01/13/21 billion cell capsule (Probiotic) magnesium PO .qd 01/13/21 nystatin 500,000 unit tablet See Rx Instructions PO TID 01/13/21 cholecalciferol (vitamin D3) 25 1,000 unit PO DAILY 03/10/21 mcg/drop (1,000 unit/drop) oral drops flaxseed oil 1,000 mg capsule 1,000 mg PO DAILY 03/28/22 methadone 31 mg PO DAILY 03/28/22 nicotine 14 mg/24 hr daily 1 patch topical DAILY 05/18/22 transdermal patch acetaminophen 500 mg tablet 500 mg PO Q6H PRN 05/20/22 ibuprofen 200 mg tablet 600 mg PO Q6H PRN 05/20/22 Current Visit Medications: Current Medications Generic Name Dose Route Start Last Admin Trade Name Freq PRN Reason Stop Dose Admin Acetaminophen 1,000 mg 05/20/22 06:00 Acetaminophen 500 Mg Tab PO 06/18/22 23:59 PREOP TARAS Gabapentin 600 mg 05/20/22 06:00 Gabapentin 300 Mg Cap PO 06/18/22 23:59 PREOP TARAS Ringer's Solution 1,000 mls @ 80 mls/hr 05/20/22 06:00 IV 06/18/22 23:59 INFUSION TARAS Cefazolin Sodium/Dextrose 2 gm in 50 mls @ 100 mls/hr 05/20/22 06:00 Ancef Duplex IVPB 06/18/22 23:59 PREOP TARAS IV Miscellaneous Supplies 1 each 05/20/22 06:00 Iv Access IV 06/18/22 23:59 DIRECTED TARAS Sodium Chloride 0 ml 05/20/22 06:00 Normal Saline Flush 10 Ml Syr IV 06/18/22 23:59 PRN PRN Sodium Chloride 0 ml 05/20/22 06:00 Normal Saline 10 Ml Vial IJ 06/18/22 23:59 DIRECTED PRN Sterile Water 0 ml 05/20/22 06:00 Water,Injection,Sterile 10 Ml Vial IJ 06/18/22 23:59 DIRECTED PRN PFSH Active Problems Active Problems: Problem Status Onset Code 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 Will manage expectantly. Pain in left toe(s) Podiatry referral 10/2019 Surgical History Surgical History section (08/06/17) PCD. [place] [id number] Pagan. [facility]. /[place]. Dilation and curettage Miscarriage 2006 Hammertoe of left foot (~03/09/20) Podiatry, Weeks Medical repair 08/20/20 History of esophagogastroduodenoscopy Tobacco Smoking/Tobacco Use Status: Current every day Tobacco Type: cigarettes Passive smoking exposure: No Alcohol Alcohol Intake: never Substance Use Substance use: Never Substance use type: does not use Prental History History 3 Para Hx # Term Pregnancies 1 Multiple births Hx # Pregnancies Ectopic pregnancies AB induced Hx Number of Living Children 1 AB spontaneous 2 Vital Signs and Lab Results Lab Results Blood Type / Crossmatch: No Data to Display Complete Blood Count: No Data to Display Complete Metabolic Panel: No Data to Display Liver Function Panel: No Data to Display Coagulation Panel: No Data to Display Cardiac Panel: No Data to Display Arterial Blood Gas: No Data to Display Venous Blood Gas: No Data to Display Pancreas Panel: No Data to Display Thyroid Panel: No Data to Display Infectious Disease: No Data to Display Blood Cultures: No Data to Display Toxicology Panel: No Data to Display Panel: No Data to Display Anesthesia Assessment and Plan Anesthesia History Personal History: No History of Anesthesia Complications Family History: No Family History of Anesthesia Complications Exercise Tolerance Exercise Tolerance: Metabolic Equivalents>4 Cardiac & Pulmonary Exam Cardiac Exam: Normal S1/S2 Heart Sounds Pulmonary Exam: Clear Bilateral Breath Sounds Implantable Cardiac Device Does patient have a Pacemaker or an ICD?: No Airway Exam Known Difficult Airway: No Mallampati Class: 2 Mouth Opening: Normal (> 3cm) Thyromental Distance: Greater than 3 cm Neck Range of Motion: Full ROM Neck Circumference: Normal Teeth Condition: Normal Dentition ASA Classification ASA Score: ASA 2 Emergency Case?: No NPO Status NPO Status: NPO Clears >2 hours, Solids >8 hours Status Status: Negative HCG Anesthesia Plan Resuscitation Status: Full Code Anesthesia Technique: General Anesthesia Airway Planned: Endotracheal Tube Monitors Used: Standard Monitors Preoperative Comments:: 36 yo female for lap pierce. Sig PMHX: GERD, opioid abuse (on methadone 31 mg/daily), anxiety, daily smoker, Previous Anes: spinal for c/s. no airway history on file here. Plan: GAETT, preop cocktail (ordered by [facility]).
--- NOTE | 2022-05-19 20:50 | HPE_ITS ---
Assessment and Plan Assessment and plan (1) Abdominal pain: Status: Acute Assessment and plan: Elective cholecystectomy today History of Present Illness History of Present Illness Chief Complaint: Abdominal pain Narrative: She describes her pain as midepigastric, and occasionally radiate up through her back.? She tells me that it is burning.? Although she is unable to identify any specific trigger foods, she does mention that she has had some recent difficulty sausage, and maybe her symptoms are a little worse at nighttime relative to the daytime.? She says her discomfort is associated with nausea and vomiting.? She reports subjective fevers.? She was recently prescribed omeprazole and sucralfate, but she has not been using them consistently.? She also recently underwent a biliary ultrasound that demonstrates cholelithiasis without evidence of gallbladder wall thickening or pericholecystic fluid. PFSH All Active Problems 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) BAART maint therapy; s/p remote ~8 months RX drug use ~19yo; goal to decrease & discontinue History of PCOS (Chronic 07/31/15) [facility] GERD (gastroesophageal reflux disease) (Chronic) Nicotine dependence (Chronic) Shoulder pain, bilateral (Chronic) Chronic intermittent; PT effective CTS (carpal tunnel syndrome) (Chronic) Chronic intermittent; PT effective Anxiety (Chronic) Referred to 10/2019 Status migrainosus (Acute) Myalgic encephalomyelitis (Acute) post-lyme viral syndrome; Wilbert Solitario (pt requested referral 09/2020) Contraception management (Acute) Abdominal pain (Acute) Abnormal renal ultrasound (Acute ~03/2022) Esophageal polyp (Acute) Medical History BMI 30.0-30.9,adult (03/14/16) Needle stick injury Oligomenorrhea Nl screening labs. Will manage expectantly. Pain in left toe(s) Podiatry referral 10/2019 Surgical History section (08/06/17) PCDAleida M. [id number]. Ej. [facility]. [place]. Dilation and curettage Miscarriage 2006 Hammertoe of left foot (~03/09/20) Podiatry, Weeks Medical repair 08/20/20 History of esophagogastroduodenoscopy Family History Grandmother Endometriosis Cancer MGM--?melanoma Maternal Aunt Endometriosis Maternal Aunt Endometriosis Grandfather Myocardial infarction Hypertension Maternal & Paternal Heart disease Maternal & Paternal Mother , 32yo drug overdose Substance abuse Alcohol abuse Depression Sister Mental disorder Depression Brother Substance abuse Alcohol abuse Social History Smoking/Tobacco Use Status: Current every day Tobacco Type: cigarettes Tobacco: How many years used: 18 Smoking risk assessment performed?: Yes Alcohol Intake: never Drug use: Never Substance use type: does not use Adopted: No Household members: children and other Details: 1 son Ej 08/06/2017 Housing: house Number of Children: 1 Do you need help understanding health information?: Rarely current occupation: [employer] Engineer, [employer]; also student studying teaching Sexually active: Yes Do you think of yourself as: straight/heterosexual Current gender identity: female Other: Father of son; in relationship, working on What type of physical activity do you participate in: walking Seatbelt use: always Do you feel safe at home: Yes Do you feel safe in your relationship?: Yes History History 3 Para Hx # Term Pregnancies 1 Multiple births Hx # Pregnancies Ectopic pregnancies AB induced Hx Number of Living Children 1 AB spontaneous 2 Meds Allergies and Home Medications Allergies Allergy/AdvReac Type Severity Reaction Status Date / Time No Known Allergies Allergy Verified 05/20/22 08:55 Home Medications Medication Instructions Recorded Confirmed Type folic acid 1 mg tablet 0.5 mg PO DAILY 01/13/21 05/20/22 History lactobacillus combination no.4 3 3,000 mmu cells PO DAILY 01/13/21 05/20/22 History billion cell capsule (Probiotic) magnesium PO .qd 01/13/21 04/13/22 History nystatin 500,000 unit tablet See Rx Instructions PO TID 01/13/21 05/20/22 History cholecalciferol (vitamin D3) 25 1,000 unit PO DAILY 03/10/21 05/20/22 History mcg/drop (1,000 unit/drop) oral drops flaxseed oil 1,000 mg capsule 1,000 mg PO DAILY 03/28/22 05/20/22 History methadone 31 mg PO DAILY 03/28/22 05/20/22 History nicotine 14 mg/24 hr daily 1 patch topical DAILY 05/18/22 05/20/22 History transdermal patch acetaminophen 500 mg tablet 500 mg PO Q6H PRN 05/20/22 05/20/22 History ibuprofen 200 mg tablet 600 mg PO Q6H PRN 05/20/22 05/20/22 History Exam Const General: cooperative, healthy appearing and comfortable Orientation: awake and oriented x3 Eyes General: appearance normal, both eyes and all related structures Conjunctivae: conjunctivae normal Sclera: sclerae normal Resp Effort & Inspection: normal respiratory effort and able to speak in complete sentences Auscultation: clear to auscultation bilaterally Cardio Jugular venous pressure: no JVD Rate: regular rate Rhythm: regular rhythm Heart Sounds: S1 normal and S2 normal GI Inspection: non-distended Palpation: soft, no guarding, no hernias and nontender Auscultation: normal bowel sounds Skin General skin exam: normal turgor Neuro General: patient alert, patient awake and patient oriented x3 Cognition: normal cognition Extrem Right lower extremity: no edema Left lower extremity: no edema
--- NOTE | 2022-05-19 20:55 | PDOC.DSDIS_ITS ---
Date of service: 05/20/22 Time of Service: 13:01 Discharge Plan Disposition Patient Disposition: Home Condition: Good Discharge Details Reason For Visit: Cholecystectomy Attending Provider: Frank Love Primary Care Provider: Diana Pitts Home Meds and New Rx's Prescriptions: New tramadol 100 mg tablet 100 mg PO BID PRN (Reason: pain) Qty: 6 0RF Rx Instructions: Take 1 tablet by mouth up to 2 times daily if needed for severe pain. This medicine can be quite addictive, so it should be used with great caution. Continued flaxseed oil 1,000 mg capsule 1,000 mg PO DAILY Rx Instructions: administer with a meal methadone 31 mg PO DAILY Label Comments: Working on titrating; wants to decrease Rx Instructions: [facility] 01/13/21 37 mg nystatin 500,000 unit tablet See Rx Instructions PO TID Rx Instructions: 0.5 tab bid, and 1 tab qd PO three times a day; folic acid 1 mg tablet 0.5 mg PO DAILY magnesium PO .qd Probiotic 3 billion cell capsule 3,000 mmu cells PO DAILY Rx Instructions: administer with a meal cholecalciferol (vitamin D3) 25 mcg/drop ( 1,000 unit/drop) drops 1,000 unit PO DAILY nicotine 14 mg/24 hr patch 24 hour 1 patch topical DAILY Label Comments: APPLY ONE PATCH TO THE SKIN EVERY DAY; starting after surgery No Action acetaminophen [Tylenol Ex Str Rapid Release] 500 mg Tablet 500 mg PO Q6H PRN ibuprofen 200 mg Tablet 600 mg PO Q6H PRN Discharge Instructions Instructions: Laparoscopic Cholecystectomy (GEN) Additional Instructions: 1. Resume all of your medications. 2. Okay to use tylenol and ibuprofen over the counter as needed. 3. Use [] as needed for pain. 4. Okay to use ice packs and heating pads as needed 5. Leave bandage in place for 24 hours, then remove. 6. Shower with warm soapy water. Pat dry. Use a bandaid if needed to protect your clothing. 7. No soaking or tub baths until I see you in the office. 8. No heavy lifting until I see you in the office. 9.Call the office (or go directly to the emergency room after hours) if you notice any of the following: Develop chills (warm to touch), or if you have a thermometer and your temperature is above 101 Difficulty breathing or difficultly swallowing Persistent vomiting Any bleeding ? exceeding one tablespoon 10. Call your physician if the site where your intravenous was started becomes red, swollen, painful, and warm to touch. Referrals: Frank Love MD [ [facility] STAFF PHYSICIAN] - (10-14 Days for routine post op) Activity:: no heavy lifting Remove Dressings/Wound Care:: 24 hours Shower/Bathe:: 24 hours Diet:: As Tolerated Discharge Orders Discharge Orders: Discharge Order (Routine); Ordered 05/19/22 Ordered By: Frank Love DS: Diagnosis Discharge Diagnosis (1) Abdominal pain: Status: Acute Asessment and Plan: Follow-up in my office 10-14 days for routine postoperative
--- NOTE | 2022-05-19 21:00 | ROE_ITS ---
Date of service: 05/20/22 Time of Service: 13:02 Operative Note Operative Note DATE OF PROCEDURE: 05/20/22 PRE-OP DIAGNOSIS: Biliary colic POST-OP DIAGNOSIS: same PROCEDURE: Laparoscopic cholecystectomy SURGEON: Frank Love CARDIAC CARE NURSE: Augustina Chamberlain ANESTHESIA TYPE: General LMA/ETT Refer to Anesthesia Record ESTIMATED BLOOD LOSS: 20 PATHOLOGY: other (Gallbladder) COMPLICATIONS: None Patient was transported to: PACU Patient's condition: stable Indications: Courtney is a 36-year-old woman with cholelithiasis. She presents with chronic abdominal pain, mostly exacerbated by fatty foods. She already underwent a work-up for gastroesophageal reflux disease, but has failed to find any relief with acid suppression therapy. She recently underwent a CAT scan of the abdomen and pelvis that demonstrated some gallbladder wall thickening concerning for cholecystitis Procedure Description: After satisfactory induction of general anesthesia, I prepped and draped the abdomen in usual fashion. Next, I began with a periumbilical incision. I dissected down to the fascia and elevated it with Joan clamps. I incised it sharply. Next, I passed a 12 mm operating port in the umbilical site. I secured it to the fascia with 0 Vicryl stitches. I then insufflated the peritoneal cavity. Next I inserted a 5 mm 30 degree scope and examined the underlying viscera. There was no evidence of injury created upon entry. I then placed the patient in some reverse Trendelenburg and left side down positioning. Then, with the assistance of the laparoscope, I used local anesthetic to anesthetize the midepigastric and 2 right upper quadrant port sites. Under the vision of the laparoscope, I passed 3 more 5 mm ports. I then grasped the gallbladder fundus and elevated cephalad. I began by dissecting the gallbladder infundibulum. The infundibulum was basically folded upon itself, creating the appearance of a second lobe of the gallbladder. This raises concern for choledocho cyst, however, as I began dissecting the infundibulum towards the cystic duct, this tapered out a bit, and had a more typical anatomic appearance. I worked in a lateral to medial fashion. Once I skeletonized the cystic duct and cystic artery, with a satisfactory critical view of safety, I doubly clipped and divided them. The cystic duct was dissected close to the gallbladder infundibulum, and at this point was still a little bit wide, in order to completely clinic, I exchanged the 5 mm port in the midepigastrium for a 12 mm port so that I could use a larger clip clinical pharmacist. I then used electrocautery to dissect the gallbladder off the gallbladder fossa. I passed the gallbladder into an Endo Catch bag and removed it by way of the umbilical site. I examined the surgical field. It was hemostatic. I then removed the 5 mm ports under the vision of the laparoscope. Finally, I removed the umbilical port site and closed the fascia with Vicryl stitches. Sites were irrigated, and the skin was closed with subcuticular stitches. Bandages were applied, patient was awakened from anesthesia, and transferred to the recovery unit.
[2022-05-20] VITALS (11 sets, daily range): BP systolic 93–116; BP diastolic 48–79; PULSE 66–82; RESP 16–24; TEMP 36.4–36.8; O2SAT 95–98; BMI 26.4
[2022-05-20] MEDS: Acetaminophen 500 MG TAB 1000 MG PO (09:15)
[2022-05-20] MEDS: Gabapentin 300 MG CAP 600 MG PO (09:15)
[2022-05-20] MEDS: Lactated Ringers 1,000 ML 80 ML IV (09:29)
[2022-05-20] MEDS: ceFAZolin 2 GM/50 ML BAG IVPB (10:41)
[2022-05-20] MEDS: Bupivacaine 0.25% Pres-Free 30 ML VIAL (10:59)
--- NOTE | 2022-05-20 12:09 | GB_PTH ---
PATIENT: Susan Araiza LOC: [facility] U#:[id number] AGE/SX: 36/F ROOM: RE05/20/[address]: Frank Love MD : [id number] BED: DIS: 05/20/2022 SPEC #: [id number] RECD: 05/20/22 13:32 STATUS: LAM REQ #: [id number] KI: 05/20/22 12:[address]: Frank Love DEPT: Surgical Specimen RECD BY: Ira Gonzalez ENTERED: 05/20/22 13:33 SP TYPE: GB OTHR DR: Diana Pitts APRN Tissues: 1 - GALLBLADDER Procedures: GROSS AND MICRO LEVEL 3 Comments: [id number]
[2022-05-20] MEDS: HYDROmorphone 2 MG/ML SYR IVP ×2 (13:07→13:17)
[2022-05-20] MEDS: Normal Saline 10 ML VIAL IJ (13:29)
[2022-05-20] MEDS: LORazepam 2 MG/ML VIAL 0.5 MG IVP (13:29)
--- NOTE | 2022-05-20 14:08 | W.ANESPOSTOP ---
Postoperative Evaluation Date, Time and Location Date Performed: 05/20/22 Time Performed: 13:50 Patient Location: PACU Vital Signs Most Recent Imported Vital Signs: Most Recent Vital Signs Temp Pulse Resp BP Pulse Ox 36.5 C 67 16 107/72 97 05/20/22 13:48 05/20/22 13:48 05/20/22 13:48 05/20/22 13:48 05/20/22 13:48 Pain Score Most Recent Pain Score: Most Recent Pain Score Pain Level 6 05/20/22 13:48 Assessment Mental Status: Awake (Alert & Oriented to Patient Baseline) Airway and Respiratory Function: Patent airway with normal (patient baseline) respiratory exam Cardiovascular Function: Hemodynamically Stable Hydration Status: Adequately Hydrated Nausea & Vomiting: No Nausea or Vomiting Pain: Pain is Moderate or Severe Postoperative Pain Management: Pain being addressed with medication Peripheral Nerve Block: Patient did not receive a nerve block
[2022-05-20] MEDS: traMADol 50 MG TAB PO (14:19)
== END 2022-05-20 15:10 | disposition home or self-care (01) ==
PROVIDERS: PCP Nurse Practitioner Adult Health; Visit Provider Surgery
PROC: 0FT44ZZ Resection of Gallbladder, Percutaneous Endoscopic Approach (ICD-10-PCS; CPT 47562; principal; 2022-05-20 10:00)
DX: K80.10 Calculus of gallbladder with chronic cholecystitis without obstruction (principal); K21.9 Gastro-esophageal reflux disease without esophagitis; F17.210 Nicotine dependence, cigarettes, uncomplicated
CPT/HCPCS: 47562; 81025; 88304; J0690; J1100; J1170; J1885; J2060; J2405; J3475

== ENCOUNTER 2022-07-09 15:16 | Observation (INO) | payer MEDICAID, SELFPAY ==
[2022-07-09] VITALS (11 sets, daily range): BP systolic 94–133; BP diastolic 55–82; PULSE 75–86; RESP 14–20; TEMP 36.8–38.4; O2SAT 95–99; BMI 26.2
--- NOTE | 2022-07-09 15:37 | ED.GENADUL_ITS ---
Discharge Plan Disposition Patient Disposition: Admit to [facility] Condition: Stable Discharge Details Chief Complaint: Abd Prob Clinical Impression: Acute appendicitis Primary Care Provider: Diana Pitts ED Provider: David Rodriguez Home Meds and New Rx's Prescriptions: No Action flaxseed oil 1,000 mg capsule 1,000 mg PO DAILY Rx Instructions: administer with a meal methadone 31 mg PO DAILY Label Comments: Working on titrating; wants to decrease Rx Instructions: [facility] 01/13/21 37 mg folic acid 1 mg tablet 0.5 mg PO DAILY magnesium PO .qd Probiotic 3 billion cell capsule 3,000 mmu cells PO DAILY Rx Instructions: administer with a meal polyethylene glycol 3350 [Miralax] 17 gram/dose powder 17 g PO BID Qty: 119 0RF Rx Instructions: Mix one capful of powder with beverage of your choice. Once in the morning, once in the evneing cholecalciferol (vitamin D3) 25 mcg/drop ( 1,000 unit/drop) drops 1,000 unit PO DAILY acetaminophen [Tylenol Ex Str Rapid Release] 500 mg Tablet 500 mg PO Q6H PRN ibuprofen 200 mg Tablet 600 mg PO Q6H PRN Medical Decision Making This is a 36-year-old female, past medical history of cholecystectomy, C- section, reporting 2-day history of nausea, increasing right lower quadrant pain over the past 24 hours or so, decreased appetite. She is on methadone, history of narcotic abuse but denies any IV drug use. Examination most concerning for appendicitis. Will initiate IV access, obtain routine screening laboratory values and reassess. Will provide IV fluid, Tylenol, Zofran. Patient denies any improvement of her nausea with Zofran. Will provide Reglan. Critical white count of 26.60. We will add on blood cultures and lactate. Will initiate CT imaging of abdomen pelvis with IV contrast. CT imaging reveals acute appendicitis with periappendiceal soft tissue stranding but no perforation or abscess identified. Patient given IV Zosyn. We will also obtain a Fluvid. Have requested a surgical consultation. Case discussed with Dr. Montero, surgery. He plans to come evaluate the patient in the ER. This documentation was generated using [employer] system, please disregard any oddities of phrase or misspellings. Medical Records Medical records reviewed: Yes I reviewed the patient's medical records. Imaging Data Radiologic Study: Attestation: I personally reviewed and interpreted this imaging study as follows: Imaging: CT Scan Radiologist's impression: PROCEDURE INFORMATION: Exam: CT Abdomen And Pelvis With Contrast Exam date and time: 07/09/2022 5:23 PM Age: 36 years old Clinical indication: Other: Rlq pain, wbc 26; Prior surgery; Surgery date: 1-6 months; Surgery type: Gallbladder removed TECHNIQUE: Imaging protocol: Computed tomography of the abdomen and pelvis with contrast. Contrast material: OMNIPAQUE 350; Contrast volume: 100 ml; Contrast route: INTRAVENOUS (IV); COMPARISON: CT ABDOMEN PELVIS WO/W 05/18/2022 3:31 PM FINDINGS: Liver: Normal. No mass. Gallbladder and bile ducts: Cholecystectomy. Pancreas: Normal. No ductal dilation. Spleen: Normal. No splenomegaly. Adrenal glands: Normal. No mass. Kidneys and ureters: Benign cyst right kidney. Stomach and bowel: Unremarkable. No obstruction. No mucosal thickening. Appendix: Dilated fluid-filled appendix with periappendiceal soft ti ssue stranding. The appendix measures 1.5 cm in diameter. Intraperitoneal space: Small amount of free fluid in the pelvis. Vasculature: Unremarkable. No abdominal aortic aneurysm. Lymph nodes: Unremarkable. No enlarged lymph nodes. Urinary bladder: Unremarkable as visualized. Reproductive: Unremarkable as visualized. Bones/joints: Unremarkable. No acute fracture. Lab Data Lab results reviewed: Yes I reviewed the patient's lab results. Labs: 07/09/22 17:36 Blood Blood Culture - Pending 07/09/22 17:36 Blood Blood Culture - Pending Laboratory Tests Range/Units 07/09/22 07/09/22 07/09/22 15:45 15:52 15:52 WBC (4.4-10.8) 10^3/uL 26.60 H* RBC (3.93-5.22) 10^6/uL 5.06 Hgb (11.2-15.7) g/dL 15.0 Hct (36.0-46.0) % 44.4 MCV (80-95) fL 88 MCH (27.0-33.0) pg 29.6 MCHC (32.0-36.0) % 33.8 RDW (11.7-14.6) % 11.6 L Plt Count (130-400) 10^3/uL 277 MPV (8.0-11.0) fL 9.6 Immature Gran % 0.0 Neutrophils % 90.0 Band Neutrophils % 2 Lymphocytes % 4.0 Monocytes % 4.0 Eosinophils % 0.0 Basophils % 0.3 Nucleated RBC % (0.0-0.3) % 0.0 Absolute Neutrophils (1.2-6.7) 10^3/uL 24.47 H Absolute Lymphocytes (1.2-3.4) 10^3/uL 1.06 L Absolute Monocytes (0.1-0.8) 10^3/uL 1.06 H Absolute Eosinophils (0.0-0.7) 10^3/uL 0.00 Absolute Basophils (0.0-0.2) 10^3/uL 0.08 RBC Morphology Normal Sodium (136-145) mmol/L 139 Potassium (3.5-5.1) mmol/L 3.6 Chloride (98-107) mmol/L 102 Carbon Dioxide (21.0-32.0) mmol/L 26.8 Anion Gap (3-11) mmol/L 10.2 BUN (7-18) mg/dL 12 Creatinine (0.55-1.02) mg/dL 0.9 Est GFR (CKD-EPI 2020) (mL/min/1.73m2) 85.50 Glucose (74-106) mg/dL 118 H Calcium (8.5-10.1) mg/dL 9.1 Total Bilirubin (0.2-1.0) mg/dL 0.8 AST (15-37) U/L 15 ALT (14-59) U/L 20 Alkaline Phosphatase (46-116) U/L 88 Total Protein (6.4-8.2) g/dL 7.4 Albumin (3.4-5.0) g/dL 4.3 Lipase (16-77) U/L 25 Urine Color (Yellow) Yellow Urine Clarity (Clear) Clear Urine pH (5-8) 7.0 Ur Specific Lund (1.005-1.025) 1.025 Urine Protein (Negative) mg/dL Negative Urine Ketones (Negative) mg/dL 40 H Urine Blood (Negative) Small H Urine Nitrite (Negative) Negative Urine Bilirubin (Negative) Negative Urine Urobilinogen (Up TO 0.2) EU/dL 0.2 Ur Leukocyte Esterase (Negative) Negative Urine RBC (0-2) HPF 3-5 H Urine WBC (0-5) HPF 0-2 Ur Epithelial Cells (Negative) HPF Few Urine Crystals (Negative) HPF Negative Urine Bacteria (Negative) HPF Negative Urine Casts (Negative) LPF Negative Urine Mucus (Negative) Negative Ur Culture Indicated? No Urine Glucose (Negative) mg/dL Negative HPI General Mode of arrival: ambulatory . Date/Time Provider Initiated Documentation: 07/09/22 15:25 . Limitations to Documentation: no limitations . Information obtained by: patient . History of Present Illness 36 year old F presents to the emergency department with the chief complaint of Abd pain, described as moderate, with intensity rated at 5. Quality is described as aching, and is localized to the abdomen. Patient reports no radiation. Patient started experiencing this day(s) (1.5) and it has been constant. No relieving factors improve symptom(s), No exacerbating factors reported . Patient notes nausea/vomiting and other (no bowel movement x 36 hours). Patient did receive the following treatments prior to arrival, none Related Data Home Medications Medication Instructions Recorded Confirmed folic acid 1 mg tablet 0.5 mg PO DAILY 01/13/21 07/09/22 lactobacillus combination no.4 3 3,000 mmu cells PO DAILY 01/13/21 07/09/22 billion cell capsule (Probiotic) magnesium PO .qd 01/13/21 06/01/22 cholecalciferol (vitamin D3) 25 1,000 unit PO DAILY 03/10/21 07/09/22 mcg/drop (1,000 unit/drop) oral drops flaxseed oil 1,000 mg capsule 1,000 mg PO DAILY 03/28/22 07/09/22 methadone 31 mg PO DAILY 03/28/22 07/09/22 acetaminophen 500 mg tablet 500 mg PO Q6H PRN 05/20/22 07/09/22 ibuprofen 200 mg tablet 600 mg PO Q6H PRN 05/20/22 07/09/22 polyethylene glycol 3350 17 17 g PO BID constipation #119 grams 05/21/22 07/09/22 gram/dose oral powder (Miralax) Previous Rx's Medication Instructions Recorded polyethylene glycol 3350 17 17 g PO BID constipation #119 grams 05/21/22 gram/dose oral powder (Miralax) Allergies Allergy/AdvReac Type Severity Reaction Status Date / Time No Known Allergies Allergy Verified 07/09/22 15:24 General Stated Complaint: Abd Prob KENDRA: 3 Review of Systems Constitutional Constitutional: Reports fever(s) (100.0) and Denies weakness Cardiovascular Cardiovascular: Denies chest pain and Denies dyspnea Respiratory Respiratory: Denies cough and Denies dyspnea Gastrointestinal Gastrointestinal: Reports abdominal pain, Reports constipation, Denies diarrhea, Denies loose stools, Reports nausea and Denies vomiting Genitourinary Genitourinary: Denies hematuria, Denies dysuria and Denies vaginal discharge Musculoskeletal Musculoskeletal: Denies back pain Integumentary/Breasts Skin/Breast: Denies rash Neurologic Neurologic: Denies weakness PFS All Active Problems (Updated 07/09/22 @ 18:21 by GERALDINE Graham) Acute appendicitis (Acute) 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) BAART maint therapy; s/p remote ~8 months RX drug use ~19yo; goal to decrease & discontinue History of PCOS (Chronic 07/31/15) [facility] GERD (gastroesophageal reflux disease) (Chronic) Nicotine dependence (Chronic) Shoulder pain, bilateral (Chronic) Chronic intermittent; PT effective CTS (carpal tunnel syndrome) (Chronic) Chronic intermittent; PT effective Anxiety (Chronic) Referred to 10/2019 Status migrainosus (Acute) Myalgic encephalomyelitis (Acute) post-lyme viral syndrome; Wilbert Solitario (pt requested referral 09/2020) Contraception management (Acute) Abdominal pain (Acute) Abnormal renal ultrasound (Acute ~03/2022) Esophageal polyp (Acute) Medical History BMI 30.0-30.9,adult (03/14/16) Needle stick injury Oligomenorrhea Nl screening labs. Will manage expectantly. Pain in left toe(s) Podiatry referral 10/2019 Surgical History section (08/06/17) PCDAleida M. 7lb6oz. Ej. [facility]. KP/AL. Dilation and curettage Miscarriage 2006 Hammertoe of left foot (~03/09/20) Podiatry, Weeks Medical repair 08/20/20 History of esophagogastroduodenoscopy Family History Grandmother Endometriosis Cancer MGM--?melanoma Maternal Aunt Endometriosis Maternal Aunt Endometriosis Grandfather Myocardial infarction Hypertension Maternal & Paternal Heart disease Maternal & Paternal Mother , 32yo drug overdose Substance abuse Alcohol abuse Depression Sister Mental disorder Depression Brother Substance abuse Alcohol abuse Social History Smoking/Tobacco Use Status: Current every day Tobacco Type: cigarettes Tobacco: How many years used: 18 Smoking risk assessment performed?: Yes Alcohol Intake: never Drug use: Never Substance use type: does not use Adopted: No Household members: children and other Details: 1 son Ej 08/06/2017 Housing: house Number of Children: 1 Do you need help understanding health information?: Rarely current occupation: [employer], [employer]; also student studying teaching Sexually active: Yes Do you think of yourself as: straight/heterosexual Current gender identity: female Other: Father of son; in relationship, working on What type of physical activity do you participate in: walking Seatbelt use: always Do you feel safe at home: Yes Do you feel safe in your relationship?: Yes History History 3 Para Hx # Term Pregnancies 1 Multiple births Hx # Pregnancies Ectopic pregnancies AB induced Hx Number of Living Children 1 AB spontaneous 2 Exam Const General: cooperative, healthy appearing, comfortable and no acute distress Orientation: alert and awake HENMT Head: normal to inspection, normocephalic and atraumatic Face and sinus: normal facial exam Mouth: moist mucous membranes Eyes Conjunctivae: conjunctivae normal Neck Neck: normal visual inspection, full ROM, no meningeal signs, trachea midline and supple Resp Effort & Inspection: normal respiratory effort and able to speak in complete sentences Auscultation: clear to auscultation bilaterally Cardio Rate: regular rate Rhythm: regular rhythm GI Inspection: normal to inspection Palpation: soft, not firm, no guarding, no pulsatile masses and tender in the RLQ Auscultation: normal bowel sounds Back/Spine/Pelvis Back: no CVA tenderness and No back tenderness Skin General skin exam: no rashes or lesions noted Neuro General: patient alert, patient awake, moves all extremities and no focal motor deficits Cognition: normal cognition Speech: speech normal Gait: normal gait Sensory Exam: no sensory deficits noted Psych Appearance: grossly normal Mental Status: mental status grossly normal Course Vital Signs Vital signs: Vital Signs Temperature 38.4 C H 07/09/22 15:21 Pulse 86 07/09/22 15:21 Blood Pressure 133/82 07/09/22 15:21 Pulse Oximetry 99 07/09/22 15:21 Temperature 38.4 C H 07/09/22 15:21 Temperature Source Skin 07/09/22 15:21 Pulse 86 07/09/22 15:21 Blood Pressure 133/82 07/09/22 15:21 Pulse Oximetry 99 07/09/22 15:21 Oxygen Delivery Method Room Air 07/09/22 15:21 Oxygen Flow Rate 0 07/09/22 15:21 Pain Level 7 07/09/22 15:21 Comment 07/09/22 15:21
[2022-07-09 15:57] LABS: Bilirubin Negative (Negative); Blood Small (Negative); Clarity Clear (Clear); Glucose Negative (Negative); Ketones 40 mg/dL (Negative); Leukocyte Esterase Negative (Negative); Nitrite Negative (Negative); Specific Gravity 1.025 (1.005-1.025); Urobilinogen 0.2 EU/dL (Up TO 0.2)
[2022-07-09 15:58] LABS: Abs Immature Grans 0.16 10^3/uL (0.0-0.06); Basophils % 0.3; HCT 44.4 % (36.0-46.0); MCH 29.6 pg (27.0-33.0); MCHC 33.8 % (32.0-36.0); MCV 88 fL (80-95); MPV 9.6 fL (8.0-11.0); Platelet Count 277 10^3/uL (130-400); RBC 5.06 10^6/uL (3.93-5.22); RDW 11.6 % (11.7-14.6); RDW-SD 37.3 fL
[2022-07-09] MEDS: Ondansetron O.D.T. 4 MG TABEF PO (16:08)
[2022-07-09 16:13] LABS: ALT 20 U/L (14-59); AST 15 U/L (15-37); Albumin 4.3 g/dL (3.4-5.0); Alkaline Phosphatase 88 U/L (46-116); Anion Gap 10.2 mmol/L (3-11); BUN 12 mg/dL (7-18); Bilirubin, Total 0.8 mg/dL (0.2-1.0); CO2 26.8 mmol/L (21.0-32.0); CREATININE 0.9 mg/dL (0.55-1.02); Calcium 9.1 mg/dL (8.5-10.1); Chloride 102 mmol/L (98-107); Glucose 118 mg/dL (74-106); Lipase 25 U/L (16-77); Potassium 3.6 mmol/L (3.5-5.1); Sodium 139 mmol/L (136-145); Total Protein 7.4 g/dL (6.4-8.2)
[2022-07-09 16:16] LABS: Absolute Basophil Count 0.08 10^3/uL (0.0-0.2)
[2022-07-09 16:17] LABS: Absolute Lymphocyte Count 1.06 10^3/uL (1.2-3.4); Absolute Monocyte Count 1.06 10^3/uL (0.1-0.8); Absolute Neutrophil Count 24.47 10^3/uL (1.2-6.7); Bands % 2; Diff Comment Manual Differential; RBC Morphology Normal
--- NOTE | 2022-07-09 16:17 | DI.CT_ITS ---
Exam(s) CT ABDOMEN PELVIS W EXAM: CT ABDOMEN PELVIS W CLINICAL HISTORY: RLQ pain, wbc 26 TECHNIQUE: Imaging Protocol: Axial computed tomography images with coronal and sagittal reformatted images were created and reviewed CONTRAST MATERIAL: Intravenous: Omnipaque 350 Contrast volume:100 mL Oral: No COMPARISON: CT CT ABDOMEN PELVIS WO/W from 05/18/2022 FINDINGS: ABDOMEN: Lung Bases: Normal where visualized. Liver: Normal density. No measurable mass. Portal, Superior Mesenteric, and Splenic Veins: Unremarkable. Gallbladder and Biliary Tract: Status post cholecystectomy. No significant biliary ductal dilatation is seen. Pancreas: Normal density, no abnormal calcifications or inflammatory process. Spleen: Normal. Adrenals: No masses seen. Kidneys: Normal size, contour and axis. No radiodense stones or obstructive uropathy. There is a stab le cyst in the right kidney. No follow-up is recommended. Abdominal Aorta: Abdominal portion non-dilated. Bowel: No obstruction or bowel wall thickening. The appendix is distended with a hyperemic wall. It measures 1.3 cm in diameter. Appendicoliths are present. There is mild Mackenzie appendiceal stranding. No free air or abscess is identified. Peritoneal Cavity: There is a small amount of free fluid in the pelvis. No free air. Lymph Nodes: Within normal limits. Bones: Within normal limits for the patient's age. Soft Tissues: Unremarkable. PELVIS: Bladder: Symmetric distention, no gross wall thickening. Reproductive Organs: Unremarkable as visualized. Lymph Nodes: Within normal limits. Bones: Within normal limits for the patient's age. IMPRESSION: These consistent with acute appendicitis. No evidence of perforation or abscess. RADIATION DOSE DELIVERED: 643.99mGy.cm Total DLP DATA REPOSITORY: All CT scans at this facility are submitted to the National Radiology Data Registry (NRDR) Dose Index Registry (DIR) with the [employer] (ACR). RADIATION OPTIMIZATION: All CT scans at this facility use at least one of these dose optimization te chniques: automated exposure control; mA and/or kV adjustment per patient size (includes targeted exa ms where dose is matched to clinical indication); or iterative reconstruction.
[2022-07-09 16:18] LABS: Bacteria Negative HPF (Negative); C & S Indicated? No; Casts Negative LPF (Negative); Crystals Negative HPF (Negative); Epithelial Cells Few HPF (Negative); Mucus Negative (Negative); WBC 0-2 HPF (0-5)
[2022-07-09] MEDS: Metoclopramide 10 MG/2 ML VIAL IVP (16:45)
[2022-07-09] MEDS: ACETAMINOPHEN 1,000 MG/100 ML BTL 100 MG (16:50)
[2022-07-09] MEDS: Normal Saline - Diluent 50 ML VIAL IJ (17:23)
[2022-07-09] MEDS: Omnipaque 350 MG/ML 100 ML BTL IJ (17:23)
--- NOTE | 2022-07-09 17:49 | DI.VRAD_ITS ---
PROCEDURE INFORMATION: Exam: CT Abdomen And Pelvis With Contrast Exam date and time: 07/09/2022 5:23 PM Age: 36 years old Clinical indication: Other: Rlq pain, wbc 26; Prior surgery; Surgery date: 1-6 months; Surgery type: Gallbladder removed TECHNIQUE: Imaging protocol: Computed tomography of the abdomen and pelvis with contrast. Contrast material: OMNIPAQUE 350; Contrast volume: 100 ml; Contrast route: INTRAVENOUS (IV); COMPARISON: CT ABDOMEN PELVIS WO/W 05/18/2022 3:31 PM FINDINGS: Liver: Normal. No mass. Gallbladder and bile ducts: Cholecystectomy. Pancreas: Normal. No ductal dilation. Spleen: Normal. No splenomegaly. Adrenal glands: Normal. No mass. Kidneys and ureters: Benign cyst right kidney. Stomach and bowel: Unremarkable. No obstruction. No mucosal thickening. Appendix: Dilated fluid-filled appendix with periappendiceal soft tissue stranding. The appendix measures 1.5 cm in diameter. Intraperitoneal space: Small amount of free fluid in the pelvis. Vasculature: Unremarkable. No abdominal aortic aneurysm. Lymph nodes: Unremarkable. No enlarged lymph nodes. Urinary bladder: Unremarkable as visualized. Reproductive: Unremarkable as visualized. Bones/joints: Unremarkable. No acute fracture. Soft tissues: Unremarkable. IMPRESSION: 1. Acute appendicitis with periappendiceal soft tissue stranding but no perforation or abscess identified. 2. Cholecystectomy 3. Benign right renal cyst. THIS REPORT CONTAINS FINDINGS THAT MAY BE CRITICAL TO PATIENT CARE. The findings were verbally communicated via telephone conference with David Rodriguez at 5:48 PM EST on 07/09/2022. The findings were acknowledged and understood. Dictated and Authenticated by: Geneva Castellon MD. Ordering:TRISH Hernandez MD
[2022-07-09] MEDS: PIPERACILLIN/TAZO 3.375 GM in Normal Saline 50 ML IVPB (17:57)
[2022-07-09 18:06] LABS: Lactate 1.4 mmol/L (0.6-1.4)
[2022-07-09 18:39] LABS: COVID-19 PCR Negative (Negative); Influenza A PCR Negative (Negative); Influenza B PCR Negative (Negative); RSV PCR Negative (Negative)
[2022-07-09 18:41] LABS: Source Nasopharynx
[2022-07-09] MEDS: MORPHine 4 MG/ML SYR IVP (19:14)
[2022-07-09] MEDS: Ondansetron 4 MG/2 ML VIAL IVP (19:14)
--- NOTE | 2022-07-09 19:27 | W.ANESPRE ---
General Info Date of Service Date Performed: 07/09/22 Height: 5 ft 1 in Weight: 62.8 kg Body Mass Index (BMI): 26.2 Surgical Procedure: Operation Date: 07/09/22 20:00 Proposed Procedure Side Surgeon p Appendectomy Laparoscopic Rizwan Montero MD Meds Allergies and Home Medications Allergies Allergy/AdvReac Type Severity Reaction Status Date / Time No Known Allergies Allergy Verified 07/09/22 15:24 Home Medication Medication Instructions Recorded folic acid 1 mg tablet 0.5 mg PO DAILY 01/13/21 lactobacillus combination no.4 3 3,000 mmu cells PO DAILY 01/13/21 billion cell capsule (Probiotic) magnesium PO .qd 01/13/21 cholecalciferol (vitamin D3) 25 1,000 unit PO DAILY 03/10/21 mcg/drop (1,000 unit/drop) oral drops flaxseed oil 1,000 mg capsule 1,000 mg PO DAILY 03/28/22 methadone 31 mg PO DAILY 03/28/22 acetaminophen 500 mg tablet 500 mg PO Q6H PRN 05/20/22 ibuprofen 200 mg tablet 600 mg PO Q6H PRN 05/20/22 polyethylene glycol 3350 17 17 g PO BID constipation #119 grams 05/21/22 gram/dose oral powder (Miralax) Current Visit Medications: Current Medications Generic Name Dose Route Start Last Admin Trade Name Freq PRN Reason Stop Dose Admin IV Miscellaneous Supplies 1 each 07/09/22 15:45 Iv Access IV DIRECTED TARAS Iohexol 100 ml 07/09/22 17:30 07/09/22 17:23 Omnipaque 350 Mg/Ml 100 Ml Btl IJ 08/08/22 23:59 100 ml DIRECTED TARAS Administration Sodium Chloride 50 ml 07/09/22 17:30 07/09/22 17:23 Normal Saline - Diluent 50 Ml Vial IJ 50 ml .FOR DI USE TARAS Administration PFSH Active Problems Active Problems: Problem Status Onset Code Acute appendicitis K35.80 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 Will manage expectantly. Pain in left toe(s) Podiatry referral 10/2019 Surgical History Surgical History section (08/06/17) PCD. [place] 7lb6oz. Ej. [facility]. [place]. Dilation and curettage Miscarriage 2006 Hammertoe of left foot (~03/09/20) Podiatry, Weeks Medical repair 08/20/20 History of esophagogastroduodenoscopy Tobacco Smoking/Tobacco Use Status: Current every day Tobacco Type: cigarettes Passive smoking exposure: No Alcohol Alcohol Intake: never Substance Use Substance use: Never Substance use type: does not use Prental History History 3 Para Hx # Term Pregnancies 1 Multiple births Hx # Pregnancies Ectopic pregnancies AB induced Hx Number of Living Children 1 AB spontaneous 2 Vital Signs and Lab Results Vital Signs Most Recent Vital Signs in EMR: Most Recent Vital Signs Temp Pulse BP Pulse Ox 38.4 C H 86 133/82 99 07/09/22 15:21 07/09/22 15:21 07/09/22 15:21 07/09/22 15:21 Point of Care Results Point of Care Results: POC- Test(urine) Negative 07/09/22 15:46 Lab Results Result Diagrams: 07/09/22 15:52 07/09/22 15:52 Blood Type / Crossmatch: No Data to Display Complete Blood Count: White Blood Count 26.60 10^3/uL (4.4-10.8) H* 07/09/22 15:52 Red Blood Count 5.06 10^6/uL (3.93-5.22) 07/09/22 15:52 Hemoglobin 15.0 g/dL (11.2-15.7) 07/09/22 15:52 Hematocrit 44.4 % (36.0-46.0) 07/09/22 15:52 Platelet Count 277 10^3/uL (130-400) 07/09/22 15:52 Venous Blood Lactate 1.4 mmol/L (0.6-1.4) 07/09/22 18:00 Complete Metabolic Panel: Sodium 139 mmol/L (136-145) 07/09/22 15:52 Potassium 3.6 mmol/L (3.5-5.1) 07/09/22 15:52 Chloride 102 mmol/L (98-107) 07/09/22 15:52 Carbon Dioxide 26.8 mmol/L (21.0-32.0) 07/09/22 15:52 BUN 12 mg/dL (7-18) 07/09/22 15:52 Creatinine 0.9 mg/dL (0.55-1.02) 07/09/22 15:52 Est GFR (CKD-EPI 2020) 85.50 (mL/min/1.73m2) 07/09/22 15:52 Calcium 9.1 mg/dL (8.5-10.1) 07/09/22 15:52 Albumin 4.3 g/dL (3.4-5.0) 07/09/22 15:52 Glucose 118 mg/dL (74-106) H 07/09/22 15:52 Liver Function Panel: Alanine Aminotransferase (ALT/SGPT) 20 U/L (14-59) 07/09/22 15:52 Aspartate Amino Transf (AST/SGOT) 15 U/L (15-37) 07/09/22 15:52 Coagulation Panel: No Data to Display Cardiac Panel: No Data to Display Arterial Blood Gas: No Data to Display Venous Blood Gas: No Data to Display Pancreas Panel: Lipase 25 U/L (16-77) 07/09/22 15:52 Thyroid Panel: No Data to Display Infectious Disease: Coronavirus (COVID-19)(PCR) Negative (Negative) 07/09/22 17:55 Coronavirus 2019 Source Nasopharynx 07/09/22 17:55 Influenza Virus Type A (PCR) Negative (Negative) 07/09/22 17:55 Influenza Virus Type B (PCR) Negative (Negative) 07/09/22 17:55 Respiratory Syncytial Virus (PCR) Negative (Negative) 07/09/22 17:55 Blood Cultures: No Data to Display Toxicology Panel: No Data to Display Panel: No Data to Display Anesthesia Assessment and Plan Anesthesia History Personal History: No History of Anesthesia Complications Family History: No Family History of Anesthesia Complications Exercise Tolerance Exercise Tolerance: Metabolic Equivalents>4 Pertinent Negatives Pertinent Negatives: No Symptoms of GERD, No Major Cardiovascular Symptoms or Complaints, No Major Pulmonary Symptoms or Complaints and No History of CVA/TIA Cardiac & Pulmonary Exam Cardiac Exam: Normal S1/S2 Heart Sounds Pulmonary Exam: Clear Bilateral Breath Sounds Implantable Cardiac Device Does patient have a Pacemaker or an ICD?: No Airway Exam Known Difficult Airway: No Mallampati Class: 2 Mouth Opening: Normal (> 3cm) Thyromental Distance: Greater than 3 cm Neck Range of Motion: Full ROM Neck Circumference: Normal Teeth Condition: Normal Dentition ASA Classification ASA Score: ASA 2 Emergency Case?: Yes NPO Status NPO Status: NPO Clears >2 hours, Solids >8 hours Status Status: Negative HCG Anesthesia Plan Resuscitation Status: Full Code Anesthesia Technique: General Anesthesia Airway Planned: Endotracheal Tube Monitors Used: Standard Monitors Preoperative Comments:: Past anesthesia Preop: Sig PMHX: GERD, opioid abuse (on methadone 31 mg/daily), anxiety, daily smoker, Previous Anes: spinal for c/s. no airway history on file here.
--- NOTE | 2022-07-09 19:36 | HPE_ITS ---
Date of service: 07/09/22 Time of Service: 19:00 Assessment and Plan Assessment and plan (1) Acute appendicitis: Status: Acute Assessment and plan: 36-year-old woman with acute appendicitis radiographically and clinically. There is no evidence of perforation thus far. She is hemodynamically stable. Her abdominal exam is focal only. I did discuss with her the possibility of finding perforation once we get inside of her and she may need to be hospitalized for IV antibiotics however if not, she can be discharged home in the morning after laparoscopic appendectomy. She agrees with the indications, potential complications as well as the expected benefits and wants to proceed. Plan: Laparoscopic appendectomy History of Present Illness Narrative: 36-year-old woman was in her usual state of health when last night she started developing abdominal cramping and nausea. The pain localized to the right lower quadrant earlier today and was relentless and she finally came into the ED to be evaluated. A CT scan showed acute appendicitis. She has not had any fevers or chills leading up to this. The pain is only in 1 spot. She has no other complaints. She recently had her gallbladder removed about 2 months ago. This is completely different. History include endoscopy and C-sections. PFSH All Active Problems (Updated 07/09/22 @ 18:21 by GERALDINE Graham) Acute appendicitis (Acute) 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) BAKEYLA maint therapy; s/p remote ~8 months RX drug use ~19yo; goal to decrease & discontinue History of PCOS (Chronic 07/31/15) [facility] GERD (gastroesophageal reflux disease) (Chronic) Nicotine dependence (Chronic) Shoulder pain, bilateral (Chronic) Chronic intermittent; PT effective CTS (carpal tunnel syndrome) (Chronic) Chronic intermittent; PT effective Anxiety (Chronic) Referred to 10/2019 Status migrainosus (Acute) Myalgic encephalomyelitis (Acute) post-lyme viral syndrome; Wilbert Solitario (pt requested referral 09/2020) Contraception management (Acute) Abdominal pain (Acute) Abnormal renal ultrasound (Acute ~03/2022) Esophageal polyp (Acute) Medical History BMI 30.0-30.9,adult (03/14/16) Needle stick injury Oligomenorrhea Nl screening labs. Will manage expectantly. Pain in left toe(s) Podiatry referral 10/2019 Surgical History section (08/06/17) PCD. Ball. 7lb6oz. Ej. [facility]. /AL. Dilation and curettage Miscarriage 2006 Hammertoe of left foot (~03/09/20) Podiatry, Weeks Medical repair 08/20/20 History of esophagogastroduodenoscopy Family History Grandmother Endometriosis Cancer MGM--?melanoma Maternal Aunt Endometriosis Maternal Aunt Endometriosis Grandfather Myocardial infarction Hypertension Maternal & Paternal Heart disease Maternal & Paternal Mother , 32yo drug overdose Substance abuse Alcohol abuse Depression Sister Mental disorder Depression Brother Substance abuse Alcohol abuse Social History Smoking/Tobacco Use Status: Current every day Tobacco Type: cigarettes Tobacco: How many years used: 18 Smoking risk assessment performed?: Yes Alcohol Intake: never Drug use: Never Substance use type: does not use Adopted: No Household members: children and other Details: 1 son Ej 08/06/2017 Housing: house Number of Children: 1 Do you need help understanding health information?: Rarely current occupation: [employer], [employer]; also student studying teaching Sexually active: Yes Do you think of yourself as: straight/heterosexual Current gender identity: female Other: Father of son; in relationship, working on What type of physical activity do you participate in: walking Seatbelt use: always Do you feel safe at home: Yes Do you feel safe in your relationship?: Yes History History 3 Para Hx # Term Pregnancies 1 Multiple births Hx # Pregnancies Ectopic pregnancies AB induced Hx Number of Living Children 1 AB spontaneous 2 Meds Allergies and Home Medications Allergies Allergy/AdvReac Type Severity Reaction Status Date / Time No Known Allergies Allergy Verified 07/09/22 15:24 Home Medications Medication Instructions Recorded Confirmed Type folic acid 1 mg tablet 0.5 mg PO DAILY 01/13/21 07/09/22 History lactobacillus combination no.4 3 3,000 mmu cells PO DAILY 01/13/21 07/09/22 History billion cell capsule (Probiotic) magnesium PO .qd 01/13/21 06/01/22 History cholecalciferol (vitamin D3) 25 1,000 unit PO DAILY 03/10/21 07/09/22 History mcg/drop (1,000 unit/drop) oral drops flaxseed oil 1,000 mg capsule 1,000 mg PO DAILY 03/28/22 07/09/22 History methadone 31 mg PO DAILY 03/28/22 07/09/22 History acetaminophen 500 mg tablet 500 mg PO Q6H PRN 05/20/22 07/09/22 History ibuprofen 200 mg tablet 600 mg PO Q6H PRN 05/20/22 07/09/22 History polyethylene glycol 3350 17 17 g PO BID constipation #119 grams 05/21/22 07/09/22 Rx gram/dose oral powder (Miralax) Exam Narrative Exam Narrative: General: Nontoxic, no acute Neuro: Alert and oriented x3 Psych: Appropriate mood and affect, good insight and understanding Abdomen: Soft, nondistended, focal tenderness in the right lower quadrant only. Results Labs Result diagrams: 07/09/22 15:52 07/09/22 15:52 Labs: Laboratory Results - last 24 hr 07/09/22 07/09/22 07/09/22 15:45 15:52 15:52 WBC 26.60 H* RBC 5.06 Hgb 15.0 Hct 44.4 MCV 88 MCH 29.6 MCHC 33.8 RDW 11.6 L Plt Count 277 MPV 9.6 Immature Gran % 0.0 Neutrophils % 90.0 Band Neutrophils % 2 Lymphocytes % 4.0 Monocytes % 4.0 Eosinophils % 0.0 Basophils % 0.3 Nucleated RBC % 0.0 Absolute Neutrophils 24.47 H Absolute Lymphocytes 1.06 L Absolute Monocytes 1.06 H Absolute Eosinophils 0.00 Absolute Basophils 0.08 RBC Morphology Normal VBG Lactate Sodium 139 Potassium 3.6 Chloride 102 Carbon Dioxide 26.8 Anion Gap 10.2 BUN 12 Creatinine 0.9 Est GFR (CKD-EPI 2020) 85.50 Glucose 118 H Calcium 9.1 Total Bilirubin 0.8 AST 15 ALT 20 Alkaline Phosphatase 88 Total Protein 7.4 Albumin 4.3 Lipase 25 Urine Color Yellow Urine Clarity Clear Urine pH 7.0 Ur Specific [place] 1.025 Urine Protein Negative Urine Ketones 40 H Urine Blood Small H Urine Nitrite Negative Urine Bilirubin Negative Urine Urobilinogen 0.2 Ur Leukocyte Esterase Negative Urine RBC 3-5 H Urine WBC 0-2 Ur Epithelial Cells Few Urine Crystals Negative Urine Bacteria Negative Urine Casts Negative Urine Mucus Negative Ur Culture Indicated? No Urine Glucose Negative COVID-19 Source SARS-CoV-2 (PCR) Influenza Type A (PCR) Influenza Type B (PCR) RSV (PCR) 07/09/22 07/09/22 17:55 18:00 WBC RBC Hgb Hct MCV MCH MCHC RDW Plt Count MPV Immature Gran % Neutrophils % Band Neutrophils % Lymphocytes % Monocytes % Eosinophils % Basophils % Nucleated RBC % Absolute Neutrophils Absolute Lymphocytes Absolute Monocytes Absolute Eosinophils Absolute Basophils RBC Morphology VBG Lactate 1.4 Sodium Potassium Chloride Carbon Dioxide Anion Gap BUN Creatinine Est GFR (CKD-EPI 2020) Glucose Calcium Total Bilirubin AST ALT Alkaline Phosphatase Total Protein Albumin Lipase Urine Color Urine Clarity Urine pH Ur Specific [place] Urine Protein Urine Ketones Urine Blood Urine Nitrite Urine Bilirubin Urine Urobilinogen Ur Leukocyte Esterase Urine RBC Urine WBC Ur Epithelial Cells Urine Crystals Urine Bacteria Urine Casts Urine Mucus Ur Culture Indicated? Urine Glucose COVID-19 Source Nasopharynx SARS-CoV-2 (PCR) Negative Influenza Type A (PCR) Negative Influenza Type B (PCR) Negative RSV (PCR) Negative Last Vital Signs Temp 101.1 F H 07/09/22 15:21 Pulse 86 07/09/22 15:21 BP 133/82 07/09/22 15:21 Pulse Ox 99 07/09/22 15:21 Time Spent Time spent with Patient: <40 minutes Time was spent: counseling the patient
[2022-07-09] MEDS: Lactated Ringers 1,000 ML 30 ML IV (20:00)
[2022-07-09] MEDS: Heparin 5,000 UNITS/ML VIAL 5000 UNITS (20:20)
--- NOTE | 2022-07-09 20:30 | APP_PTH ---
PATIENT: Susan Araiza LOC: U#:[id number] AGE/SX: 36/F ROOM: [facility] RE07/09/[address]: Rizwan Montero : 1985 BED: A DIS: 07/10/2022 SPEC #: [id number] RECD: 07/11/22 12:24 STATUS: LAM REChris #: [id number] KI: 07/09/22 20:[address]: Rizwan Montero DEPT: Surgical Specimen RECD BY: Ira Gonzalez ENTERED: 07/11/22 12:25 SP TYPE: Appendix OTHR DR: Diana Pitts APRN Tissues: 1 - APPENDIX NOT INCIDENTAL Procedures: GROSS AND MICRO LEVEL 3 Comments: [id number]
--- NOTE | 2022-07-09 20:49 | ROE_ITS ---
Date of service: 07/09/22 Time of Service: 20:48 Operative Note Operative Note Refer to Anesthesia Record Procedure Description: Procedures performed: 1. Laparoscopic appendectomy ?Preoperative diagnosis: Acute appendicitis ?Postop diagnosis: Acute appendicitis ?Surgeon: Avi Montero Network And Threat Support Specialist:Anthony Jeff ?Anesthesia: General ?Anesthesia provider: oJe ?Indication for procedure: 36 yo woman with acute onset RLQ pain and CT findings consistent with acute, non-perforated appendicitis. ?Findings:? An acutely inflamed appendix was encountered and removed.? No perforation. ?Estimated blood loss: Scant/Minimal ?Complications: No complications ?Drains: No Procedure details: The patient gave written consent, was in agreement with the risks, indications and benefits of the procedure and was taken to the operating room and laid supine with arms outstretched.? Anesthesia was administered which was tolerated very well.? We tucked the left arm.? Antibiotics and DVT prophylaxis had been given.? We performed a timeout and when we were all in agreement I began the case. We prepped and draped the abdomen in sterile fashion.? I used a Veress needle at the umbilicus and insufflated without any difficulty.? A 5 mm port was placed thru the umbilicus without any difficulty. I had adequate exposure and visualization of the RLQ with the above-mentioned findings.? I placed another trocar under direct visualization suprapubic. An inflamed, non-perforated appendix was found in usual anatomic position. Using the Ligasure I divided the mesoappendix.? I upsized the umbilical trocar to a 12mm port. Next I divided the appendix base with the stapler and this tissue was healthy in appearance. I removed the appendix from the abdominal cavity and passed the specimen off the back table.? I rechecked for hemostasis at the staple line and placed a couple of 5mm clips on the staple line to control small oozing. After this, hemostasis was excellent.? The 12 mm port site was closed through the fascia with 0-Vicryl.? The remaining port was removed.? Skin was closed with absorbable sutures and dressings were placed. The patient tolerated the procedure well and was extubated and taken to the PACU in HD stable condition.
[2022-07-09] MEDS: Bupivacaine 0.25% Pres-Free 30 ML VIAL (20:52)
--- NOTE | 2022-07-09 21:56 | W.ANESPOSTOP ---
Postoperative Evaluation Date, Time and Location Date Performed: 07/09/22 Time Performed: 21:25 Patient Location: Med/Surg Vital Signs Most Recent Imported Vital Signs: Most Recent Vital Signs Temp Pulse Resp BP Pulse Ox 37.1 C 82 20 97/58 L 96 07/09/22 21:25 07/09/22 21:25 07/09/22 21:25 07/09/22 21:25 07/09/22 21:25 Pain Score Most Recent Pain Score: Most Recent Pain Score Pain Level 2 07/09/22 21:25 Assessment Mental Status: Awake (Alert & Oriented to Patient Baseline) Airway and Respiratory Function: Patent airway with normal (patient baseline) respiratory exam Cardiovascular Function: Hemodynamically Stable Hydration Status: Adequately Hydrated Nausea & Vomiting: No Nausea or Vomiting Pain: Pain is tolerable per patient Peripheral Nerve Block: Patient did not receive a nerve block
[2022-07-09] MEDS: Acetaminophen 500 MG TAB 1000 MG PO (22:18)
[2022-07-09] MEDS: MORPHine 2 MG/ML SYR IVP (22:36)
[2022-07-09] MEDS: Normal Saline Flush 10 ML SYR IVP (22:38)
[2022-07-10] MEDS: Acetaminophen 500 MG TAB 1000 MG PO ×2 (03:34→09:01)
[2022-07-10] MEDS: MORPHine 2 MG/ML SYR IVP ×3 (03:35→11:20)
[2022-07-10] MEDS: Normal Saline Flush 10 ML SYR IVP ×2 (03:35→11:20)
[2022-07-10 03:39] VITALS: BP 105/63; PULSE 70; RESP 16; TEMP 37.1; O2SAT 95
[2022-07-10 04:01] VITALS: RESP 16; O2SAT 95
[2022-07-10 04:02] VITALS: RESP 16; O2SAT 95
[2022-07-10] MEDS: Enoxaparin 40 MG/0.4 ML SYR SC (06:08)
[2022-07-10 06:41] VITALS: BP 104/65; PULSE 67; RESP 16; TEMP 36.9; O2SAT 96
[2022-07-10] MEDS: Methadone Liquid 10 MG/ML 31 MG PO (08:09)
[2022-07-10 14:50] VITALS: BP 103/66; PULSE 66; RESP 17; TEMP 36.9; O2SAT 94
== END 2022-07-10 14:57 | disposition home or self-care (01) ==
LOC: ER 18:20 → DSU 19:48 → MS 21:46
PROVIDERS: Admitting Provider Student in an Organized Health Care Education/Training Program; Emergency Provider Physician Assistant; PCP Nurse Practitioner Adult Health; Visit Provider Student in an Organized Health Care Education/Training Program
PROC: 0DTJ4ZZ Resection of Appendix, Percutaneous Endoscopic Approach (ICD-10-PCS; CPT 44970; principal; 2022-07-09 20:00)
DX: K35.80 Unspecified acute appendicitis (principal); F11.20 Opioid dependence, uncomplicated; K21.9 Gastro-esophageal reflux disease without esophagitis; F17.210 Nicotine dependence, cigarettes, uncomplicated; F41.9 Anxiety disorder, unspecified; E28.2 Polycystic ovarian syndrome
CPT/HCPCS: 44970; 80053; 81025; 83690; 87040; 87637; 96365; 96372; 96374; 96375; 99285; J1650; 74177; 81003; 81015; 83605; 85025; 88304; J0131; J1100; J1644; J1885; J2250; J2270; J2405; J2543; J2765; J3475; J3490

== ENCOUNTER 2022-11-30 02:46 | Outpatient (CLI) | payer MEDICAID, SELFPAY ==
[2022-11-30 08:22] LABS: Kit/Specimen SENT
[2022-11-30 10:46] LABS: Abs Immature Grans 0.03 10^3/uL (0.0-0.06); Absolute Basophil Count 0.04 10^3/uL (0.0-0.2); Absolute Eosinophil Count 0.11 10^3/uL (0.0-0.7); Absolute Lymphocyte Count 2.31 10^3/uL (1.2-3.4); Absolute Monocyte Count 0.52 10^3/uL (0.1-0.8); Absolute Neutrophil Count 3.52 10^3/uL (1.2-6.7); Basophils % 0.6; Eosinophils % 1.7; HCT 42.7 % (36.0-46.0); HGB 14.3 g/dL (11.2-15.7); Immature Grans % 0.5; Lymphocytes % 35.4; MCH 28.6 pg (27.0-33.0); MCHC 33.5 % (32.0-36.0); MCV 85 fL (80-95); MPV 10.2 fL (8.0-11.0); Neutrophils % 53.8; Platelet Count 220 10^3/uL (130-400); RDW 12.6 % (11.7-14.6); WBC 6.53 10^3/uL (4.4-10.8)
[2022-11-30 11:32] LABS: ALT 27 U/L (14-59); AST 15 U/L (15-37); Alkaline Phosphatase 67 U/L (46-116); Anion Gap 8.5 mmol/L (3-11); BUN 16 mg/dL (7-18); Bilirubin, Total 0.4 mg/dL (0.2-1.0); CO2 28.5 mmol/L (21.0-32.0); Calcium 9.3 mg/dL (8.5-10.1); Chloride 104 mmol/L (98-107); Estimated GFR 75.34 (mL/min/1.73m2); Folate 8.6 ng/mL (8.6-20.0); Glucose 102 mg/dL (74-106); Sodium 141 mmol/L (136-145); Total Protein 7.2 g/dL (6.4-8.2); Vitamin B12 645 pg/mL (193-986)
[2022-11-30 11:59] LABS: FREE T4 0.99 ng/dL (0.76-1.46)
[2022-11-30 21:52] LABS: T3,Free 4.3 pg/mL (2.8-5.3)
[2022-12-02 09:40] LABS: CMV Ab, IgG Positive (Negative); CMV Ab, IgM Negative (Negative); EBV EA IgG Negative (Negative)
[2022-12-02 10:05] LABS: EBNA IgG Positive (Negative); EBV Interpretation (See Note); VCA IgG Positive (Negative); VCA IgM Positive (Negative)
[2022-12-04 16:37] LABS: Brucella Ab, Agglutination <1:80 (<1:80)
[2022-12-05 10:50] LABS: 25-Hydroxy D Total 42 ng/mL; 25-Hydroxy D2 <4.0 ng/mL; 25-Hydroxy D3 42 ng/mL
== END 2022-11-30 02:47 | disposition home or self-care (01) ==
PROVIDERS: PCP Nurse Practitioner Adult Health; Visit Provider Naturopath
DX: M54.50 Low back pain, unspecified (principal); M25.551 Pain in right hip; M25.552 Pain in left hip; R53.83 Other fatigue; M54.2 Cervicalgia; J02.9 Acute pharyngitis, unspecified; M79.2 Neuralgia and neuritis, unspecified; G31.84 Mild cognitive impairment of uncertain or unknown etiology; R61 Generalized hyperhidrosis; R51.0 Headache with orthostatic component, not elsewhere classified; H53.9 Unspecified visual disturbance
CPT/HCPCS: 36415; 80053; 82306; 86622; 86663; 82607; 82746; 84439; 84443; 84481; 85025; 86644; 86645; 86664; 86665

== ENCOUNTER 2023-01-20 02:48 | Outpatient (CLI) | payer MEDICAID, SELFPAY ==
[2023-01-24 22:27] LABS: F. tularensis Ab, IgG Negative (Negative); F. tularensis Ab, IgM Borderline (Negative)
[2023-01-25 12:46] LABS: Brucella Ab, Agglutination <1:80 (<1:80)
== END 2023-01-20 02:49 | disposition home or self-care (01) ==
PROVIDERS: PCP Nurse Practitioner Adult Health; Visit Provider Naturopath
DX: R53.83 Other fatigue (principal); R61 Generalized hyperhidrosis; M54.59 Other low back pain; A23.9 Brucellosis, unspecified; R89.9 Unspecified abnormal finding in specimens from other organs, systems and tissues
CPT/HCPCS: 36415; 86622; 86668

== ENCOUNTER 2023-02-17 13:13 | Outpatient (REF) | payer MEDICAID, SELFPAY ==
--- NOTE | 2023-02-17 12:15 | PAPFT_PTH ---
PATIENT: Susan Araiza LOC: [facility] U#:[id number] AGE/SX: 37/F ROOM: RE02/17/[address]: Valencia López MD : 1985 BED: DIS: 02/17/2023 SPEC #: [id number] RECD: 02/17/23 13:26 STATUS: LAM REChris #: [id number] KI: 02/17/23 12:[address]: Valencia López DEPT: [facility] Cytology RECD BY: Ira Gonzalez ENTERED: 02/17/23 13:26 SP TYPE: PAPFT OT DR: Diana Pitts APRN Tissues: 1 - CX/ENDOCX FOR PAP SMEARS Procedures: PAP THIN PREP/UVM Screening HPV DNA PROBE Comments: [id number] (CHLAMYDIA/GC)
[2023-02-20 15:07] LABS: Chlamydia Result Negative (Negative); GC Result Negative (Negative)
== END 2023-02-17 13:14 | disposition home or self-care (01) ==
LOC: LBN 13:13
PROVIDERS: PCP Nurse Practitioner Adult Health; Visit Provider Obstetrics & Gynecology
DX: Z11.3 Encounter for screening for infections with a predominantly sexual mode of transmission (principal); Z12.4 Encounter for screening for malignant neoplasm of cervix; Z11.51 Encounter for screening for human papillomavirus (HPV)
CPT/HCPCS: 87491; 87591; 88142; 87624

== ENCOUNTER 2023-03-31 09:09 | Day surgery (SDC) | payer MEDICAID, SELFPAY ==
--- NOTE | 2023-03-30 19:52 | W.PM.DSUDISC ---
Date of service: 03/31/23 Time of Service: 11:48 Discharge Plan Disposition Patient Disposition: Home Condition: Good Discharge Details Reason For Visit: Umbililcal hernia repair Attending Provider: Frank Love Primary Care Provider: Diana Pitts Home Meds and New Rx's Prescriptions: New tramadol 50 mg tablet 50 mg PO Q8H PRNQty: 12 0RF Rx Instructions: 1 tablet by mouth up to every 8 hours if needed for severe pain Continued flaxseed oil 1,000 mg capsule 1,000 mg PO DAILY Rx Instructions: administer with a meal magnesium PO .qd Probiotic 3 billion cell capsule 3,000 mmu cells PO DAILY Rx Instructions: administer with a meal cholecalciferol (vitamin D3) 25 mcg/drop ( 1,000 unit/drop) drops 1,000 unit PO DAILY acetaminophen 500 mg Tablet 500 mg PO Q6H PRN ibuprofen 200 mg Tablet 600 mg PO Q6H PRN methadone 6 mg PO DAILY Discharge Instructions Instructions: Umbilical Hernia Repair (GEN) Additional Instructions: Susan, we were able to repair your umbilical hernia today. I suspect that this was probably arising from a port site from your previous operation. I was able to implant a mesh down below the fascia (which is the top layer) and then closed the hole over top of it. I tried to lay down the umbilical incision to create a little more shelf on the underside, and try to make it a little more cosmetically pleasing. I would expect some bruising in the area over the days to come, so do not be alarmed if you observe that. You can remove the bandages tomorrow night, and wash the incision with warm soapy water. You should shower at least once per day, and examine the wound time. Please let me know if you see any signs of increasing redness, or worrisome drainage from the incision. You are more than welcome to dress the wound with a bandage if that is more comfortable for your clothing, or if there is some drainage. Otherwise, you do not need Band-Aid specifically to protect it. I recommend alternating Tylenol and ibuprofen in the days to follow much like your previous surgeries. I have also provided a prescription for some tramadol if the [id number] medications are not strong enough. Heating pads and ice packs may also provide some relief. Over the coming days, please try your best not to lift more than 10 pounds, or exert too much force against her abdominal wall. Careful avoidance of cigarette smoking, and management of your weight will also be quite helpful in the years to come to reduce the chances of the hernia recurring. If you have any questions at all, please do not hesitate to contact me at any point, otherwise, I look forward to seeing you in the office on the Referrals: Frank Love MD [ [facility] STAFF PHYSICIAN] - Activity:: no heavy lifting Remove Dressings/Wound Care:: 24 hours Shower/Bathe:: 24 hours Diet:: As Tolerated Discharge Orders Discharge Orders: Discharge Order (Routine); Ordered 03/30/23 Ordered By: Frank Love DS: Diagnosis Discharge Diagnosis (1) Incisional hernia: Status: Acute
--- NOTE | 2023-03-30 19:54 | W.PM.OP ---
Date of service: 03/31/23 Time of Service: 11:49 Operative Note Operative Note DATE OF PROCEDURE: 03/31/23 PRE-OP DIAGNOSIS: Incisional hernia PROCEDURE: Open umbilical incisional hernia repair with mesh SURGEON: Frank Love WASTE DISPOSAL LEAKAGE TESTER: Patrica Abad ANESTHESIA TYPE: Local By Surgeon and General LMA/ETT Refer to Anesthesia Record ESTIMATED BLOOD LOSS: 25 PATHOLOGY: none sent COMPLICATIONS: None Patient was transported to: PACU Patient's condition: stable Implants: 4.[address] umbilical hernia patch Indications: Courtney is a 37-year-old woman with an umbilical hernia, that I suspect is arising from a port site from previous surgery. She has had increasing pain as well as a bulge at the site. Findings: Incisional umbilical hernia Procedure Description: After the induction of general anesthesia by way of a natural airway, I prepped and draped the anterior abdominal wall in the usual fashion. Next I established a generous field block using local anesthetic. I then made a infraumbilical slightly curvilinear incision and dissected down through the skin and subcutaneous tissues. The umbilicus was dissected circumferentially, and the umbilical stalk was from the underlying fascia and elevated. A small fascial defect was encountered slightly to the right, and towards the upper side of the umbilical ring. It seemed consistent with a previous port site. I would estimate the size to be about 0.75 cm in its largest dimension. The defect was slightly enlarged, and dissection of the fascial edge was carefully performed. With the visceral sac reduced back into the peritoneum, I delivered a 4.[address] umbilical hernia patch into the subrectus position. The tails were split, and it was pexied down onto the fascia with interrupted Prolene's. The fascial defect was closed horizontally with interrupted Prolene sutures. The surgical site was irrigated, and the umbilical stalk was pexied down onto the fascia with Vicryl suture. The deep layers of the skin were closed down also with absorbable suture, and finally, the skin was closed with running subcuticular stitch. Bandages were applied and the patient was allowed awaken from the anesthesia and transferred to the recovery unit.
[2023-03-31 09:17] VITALS: BP 121/74; PULSE 63; RESP 18; TEMP 36.7; O2SAT 97
--- NOTE | 2023-03-31 09:38 | ANES.PREOP_ITS ---
General Info Date of Service Date Performed: 03/31/23 Height: 5 ft 1 in Weight: 69.2 kg Body Mass Index (BMI): 28.8 Surgical Procedure: Operation Date: 03/31/23 11:10 Proposed Procedure Side Surgeon p Herniorrhaphy Incisional w/Mesh Frank Love MD Meds Allergies and Home Medications Allergies Allergy/AdvReac Type Severity Reaction Status Date / Time No Known Allergies Allergy Verified 03/31/23 09:16 Home Medication Medication Instructions Recorded lactobacillus combination no.4 3 3,000 mmu cells PO DAILY 01/13/21 billion cell capsule (Probiotic) magnesium PO .qd 01/13/21 cholecalciferol (vitamin D3) 25 1,000 unit PO DAILY 03/10/21 mcg/drop (1,000 unit/drop) oral drops flaxseed oil 1,000 mg capsule 1,000 mg PO DAILY 03/28/22 acetaminophen 500 mg tablet 500 mg PO Q6H PRN 05/20/22 ibuprofen 200 mg tablet 600 mg PO Q6H PRN 05/20/22 methadone 6 mg PO DAILY 03/31/23 Current Visit Medications: Current Medications Generic Name Dose Route Start Last Admin Trade Name Freq PRN Reason Stop Dose Admin Acetaminophen 1,000 mg 03/31/23 06:00 Acetaminophen 500 Mg Tab PO 03/31/23 23:59 PREOP [facility] Celecoxib 200 mg 03/31/23 06:00 Celecoxib 200 Mg Cap PO 03/31/23 23:59 PREOP [facility] Gabapentin 600 mg 03/31/23 06:00 Gabapentin 300 Mg Cap PO 03/31/23 23:59 PREOP [facility] Ringer's Solution 1,000 mls @ 80 mls/hr 03/31/23 06:00 IV 03/31/23 23:59 INFUSION [facility] Cefazolin Sodium/Dextrose 2 gm in 50 mls @ 100 mls/hr 03/31/23 06:00 Ancef Duplex IVPB 03/31/23 23:59 PREOP [facility] IV Miscellaneous Supplies 1 each 03/31/23 06:00 Iv Access IV 03/31/23 23:59 DIRECTED [facility] Morphine Sulfate 2 mg 03/30/23 19:56 Morphine 4 Mg/Ml Syr IVP 04/29/23 19:55 Q1H PRN PRN Sodium Chloride 0 ml 03/31/23 06:00 Normal Saline Flush 10 Ml Syr IV 03/31/23 23:59 PRN PRN Sodium Chloride 0 ml 03/31/23 06:00 Normal Saline 10 Ml Vial IJ 03/31/23 23:59 DIRECTED PRN Sterile Water 0 ml 03/31/23 06:00 Water,Injection,Sterile 10 Ml Vial IJ 03/31/23 23:59 DIRECTED PRN Tramadol HCl 50 mg 03/30/23 19:56 Tramadol 50 Mg Tab PO 04/29/23 19:55 Q6H PRN PRN Pain PFSH Active Problems Active Problems: Problem Status Onset Code Incisional hernia K43.2 Esophageal polyp K22.81 Abdominal pain R10.9 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 Will manage expectantly. Surgical History Surgical History (Updated 03/31/23 @ 09:32 by Rachel Morley RN) Hx of cholecystectomy Hx of appendectomy (~07/09/22) [facility] History of esophagogastroduodenoscopy Hammertoe of left foot (~03/09/20) Podiatry, Weeks Medical repair 08/20/20 section (08/06/17) MAleida 7lb6oz. Ej. [facility]. KP/AL. Dilation and curettage Miscarriage 2005 ETOP Jan 2023 Tobacco Smoking/Tobacco Use Status: Current-Occasional Tobacco Type: cigarettes Smoking cigarettes per day: 4 Passive smoking exposure: No Alcohol Alcohol Intake: never Substance Use Substance use: Never Substance use type: does not use Prental History History 4 Para Hx # Term Pregnancies 1 Multiple births Hx # Pregnancies Ectopic pregnancies AB induced 1 Hx Number of Living Children 1 AB spontaneous 2 Past Pregnancies Del. Date GA/Weeks # Preg Succ Route Wgt Sex Labor Lgth Anesth esia Location [facility] 08/06/17 40 No Yes Male Layla Rebollart - [facility] 01/17/23 Delivery Date: 08/06/17 Last Updated by: Valencia López MD [facility] - Cat 2 FHT Delivery Date: 01/17/23 Last Updated by: Valencia López MD [facility] Vital Signs and Lab Results Vital Signs Most Recent Vital Signs in EMR: Most Recent Vital Signs Temp Pulse Resp BP Pulse Ox 36.7 C 63 18 121/74 97 03/31/23 09:17 03/31/23 09:17 03/31/23 09:17 03/31/23 09:17 03/31/23 09:17 Point of Care Results Point of Care Results: POC- Test(urine) Negative 03/31/23 10:33 Lab Results Blood Type / Crossmatch: No Data to Display Complete Blood Count: No Data to Display Complete Metabolic Panel: No Data to Display Liver Function Panel: No Data to Display Coagulation Panel: No Data to Display Cardiac Panel: No Data to Display Arterial Blood Gas: No Data to Display Venous Blood Gas: No Data to Display Pancreas Panel: No Data to Display Thyroid Panel: No Data to Display Infectious Disease: No Data to Display Blood Cultures: No Data to Display Toxicology Panel: No Data to Display Panel: No Data to Display Anesthesia Assessment and Plan Anesthesia History Personal History: No History of Anesthesia Complications Family History: No Family History of Anesthesia Complications Exercise Tolerance Exercise Tolerance: Metabolic Equivalents>4 Pertinent Negatives Pertinent Negatives: No Symptoms of GERD, No Major Cardiovascular Symptoms or Complaints, No Major Pulmonary Symptoms or Complaints and No History of CVA/TIA Cardiac & Pulmonary Exam Cardiac Exam: Normal S1/S2 Heart Sounds Pulmonary Exam: Clear Bilateral Breath Sounds Implantable Cardiac Device Does patient have a Pacemaker or an ICD?: No Airway Exam Known Difficult Airway: No Mallampati Class: 2 Mouth Opening: Normal (> 3cm) Thyromental Distance: Greater than 3 cm Neck Range of Motion: Full ROM Neck Circumference: Normal Teeth Condition: Normal Dentition ASA Classification ASA Score: ASA 2 Emergency Case?: No NPO Status NPO Status: NPO Clears >2 hours, Solids >8 hours Status Status: Negative HCG Anesthesia Plan Resuscitation Status: Full Code Anesthesia Technique: General Anesthesia Airway Planned: Natural Airway Monitors Used: Standard Monitors
[2023-03-31] MEDS: Celecoxib 200 MG CAP PO (09:46)
[2023-03-31] MEDS: Acetaminophen 500 MG TAB 1000 MG PO (09:46)
[2023-03-31] MEDS: Gabapentin 300 MG CAP 600 MG PO (09:46)
[2023-03-31] MEDS: Lactated Ringers 1,000 ML 80 ML IV (10:05)
[2023-03-31 10:32] VITALS: BMI 28.8
[2023-03-31] MEDS: ceFAZolin 2 GM/50 ML BAG IVPB (10:48)
[2023-03-31] MEDS: Bupivacaine 0.25% Pres-Free 30 ML VIAL (11:07)
[2023-03-31 11:45] VITALS: BP 85/52; PULSE 70; RESP 20; TEMP 36.2; O2SAT 94
[2023-03-31 12:15] VITALS: BP 93/60; PULSE 56; RESP 16; TEMP 36.4; O2SAT 97
--- NOTE | 2023-03-31 12:23 | W.ANESPOSTOP ---
Postoperative Evaluation Date, Time and Location Date Performed: 03/31/23 Time Performed: 12:12 Patient Location: Day Surgery Unit Vital Signs Most Recent Imported Vital Signs: Most Recent Vital Signs Temp Pulse Resp BP Pulse Ox 36.2 C L 70 20 85/52 L 94 03/31/23 11:45 03/31/23 11:45 03/31/23 11:45 03/31/23 11:45 03/31/23 11:45 Pain Score Most Recent Pain Score: Most Recent Pain Score Pain Level 0 03/31/23 11:45 Assessment Mental Status: Awake (Alert & Oriented to Patient Baseline) Airway and Respiratory Function: Patent airway with normal (patient baseline) respiratory exam Cardiovascular Function: Hemodynamically Stable Hydration Status: Adequately Hydrated Nausea & Vomiting: No Nausea or Vomiting Pain: Pain is tolerable per patient Peripheral Nerve Block: Patient did not receive a nerve block
[2023-03-31] MEDS: traMADol 50 MG TAB PO (12:30)
== END 2023-03-31 13:05 | disposition home or self-care (01) ==
LOC: SUR 09:10
PROVIDERS: PCP Nurse Practitioner Adult Health; Visit Provider Surgery
PROC: (CPT 49591; principal; 2023-03-31 11:00)
DX: K43.2 Incisional hernia without obstruction or gangrene (principal); K21.9 Gastro-esophageal reflux disease without esophagitis; F17.210 Nicotine dependence, cigarettes, uncomplicated; F11.20 Opioid dependence, uncomplicated
CPT/HCPCS: 49591; 81025; C1781; J0690; J1100; J2001; J2405

== ENCOUNTER → 2023-07-25 06:48 | Outpatient (CLI) | payer MEDICAID, SELFPAY ==
--- OUTSIDE RECORDS SUMMARY | 2023-07-24 20:46 | XMS_ITS | Patient Health Record ---
Author Name Unknown [facility] Address [address] [place] [address] Care Team Providers Care Rural Route Carrier Name Role Phone MABLE ELLIE Primary Care Provider Unavailab Arti López Unavailable [phone] REASON FOR REFERRAL No Information MEDICATIONS Medication SIG (Take, Route, Frequency, Duration) Notes Start Date End Date Status Cefuroxime Axetil 500 MG 1 tablet Orally every 12 hrs for 5 day(s) for lyme Active Erythromycin 500 MG as directed Orally for lyme Active Omeprazole 40 MG 1 capsule 30 minutes before morning meal Orally Once a day for 30 day(s) Active Vitamin B Complex - as directed Orally Active Magnesium 125 MG 3 tablets with a sonia l Orally Once a day Active Vitamin C Plus 1000 MG as directed Orally Active Methadone HCl 40 MG 1 tablet in 4 ounces of water or juice Orally Once a day 42mg daily Active Multivitamin Gummies Womens - as directed Orally Active SOCIAL HISTORY Tobacco Use: Social History Observation Description Date Details (start date - stop date) Current Smoker NA - NA Sex Assigned At : Social History Observation Description Sex Assigned At Unknown SMOKING Question Answer Notes Are you a: current smoker Are you interested in quitting? Ready to quit in process of quiting PROBLEMS Problem Type ICD Code Onset Dates Problem Status W/U Status Risk SNOMED Code Notes Problem Carpal tunnel syndrome (G56.00) Active confirmed Carpal mikhail fred syndrome (04398914) Problem Anxiety (F41.9) Active confirmed Anxiet y (93596494) Problem GERD (gastroesophageal reflux disease) (K21.9) Active confirmed Gastroesophagea l reflux disease (731423440) Problem Shoulder pain, bilateral (M25.511) Active confirmed Shoulder joint pain (499959572) Problem PCOS (polycystic ovarian syndrome) (E28.2) Active confirmed Polycystic ovar ies (57587902) Problem Nicotine dependence (F17.200) Active confirmed Nicotine dependence (72947913) Problem Pain in left toe(s) (M79.675) Active confirmed Pain in rosario b (22416915) Problem Oligomenorrhea (N91.5) Active confirmed Oligomenorrhea (13073047) Problem Methadone dependence (F11.20) Active confirmed Methadone dependence (655648173) Problem Hammertoe of left foot (M20.42) Active confirmed [id number] PLAN OF TREATMENT No Information Insurance Providers Payer Name Payer Address Payer Phone Subscriber Number Group Number Insured Name Patient Relationship to Insured Coverage Start Date Coverage End Date [place] [employer] [place], [place] [id number] LAURA YU Self - patient is the insured [place] [address] LAURA YU Self - patient is the insured MEDICAL (GENERAL) HISTORY Medical History History ICD Code Anxiety F41.9 Carpal tunnel syndrome G56.00 GERD (gastroesophageal reflux disease) K 21.9 PCOS (polycystic ovarian syndrome) E28.2 Nicotine dependence F17.200 Oligomenorrhea N91.5 Pain in left toe(s) M79.675 Shoulder pain, bilateral M25.511 needle stick injury (inactive) Methadone dependence F11.20 Surgical History Surgery Date(Month/Year) 08/06/17 dilation and curettage -miscarriage 2005
[2023-07-25] MEDS: Barium Sulfate 2% W/V-Berry Smoothie 450 ML BTL PO ×2 (09:11→09:14)
[2023-07-25] MEDS: Omnipaque 350 MG/ML 100 ML BTL IJ (09:40)
[2023-07-25] MEDS: Normal Saline - Diluent 50 ML VIAL IJ (09:40)
--- NOTE | 2023-07-25 09:55 | DI.CT_ITS ---
Exam(s) CT ABDOMEN PELVIS W EXAM: CT ABDOMEN PELVIS W CLINICAL HISTORY: ? umbilical hernia and right inguinal hernia,k43.2. TECHNIQUE: Imaging Protocol: Axial computed tomography images with coronal and sagittal reformatted images were created and reviewed CONTRAST MATERIAL: Intravenous: Omnipaque-350 100cc Oral: . Oral contrast was administered for bowel opacification. COMPARISON: CT CT ABDOMEN PELVIS W from 07/09/2022 FINDINGS: VISUALIZED LUNG BASES: No nodules nor pleural effusions evident. ABDOMEN: There is no ascites. ANTERIOR ABDOMINAL WALL: There is now a midline immediately supraumbilical anterior abdominal wall he rnia which exhibits a wide neck (3.7 cm wide) by 4 cm craniocaudal by 1.8 cm AP. Does not contain sm all bowel loops. Disc, realizing that the patient is in the supine position on the CT table during i mage acquisition. There is no fluid in the hernia sac. LIVER: There are no focal hepatic lesions evident. No dilated intrahepatic ducts. GALLBLADDER/BILIARY: Gallbladder is again noted be surgically absent. CBD is not dilated. PANCREAS: No evidence of pancreatic mass nor dilatation of the pancreatic duct. SPLEEN: Spleen is not enlarged. No obvious intrasplenic lesions. Splenic and portal veins are paten t. ADRENALS: There are no significant adrenal masses. KIDNEYS:Benign cyst again noted in the posterior cortex of the right kidney measuring 1.8 cm, unchang ed. This does not require further workup. No solid renal masses. No calculi nor hydronephrosis.. ABDOMINAL AORTA: Abdominal aorta is not enlarged. LYMPH NODES:There is no retroperitoneal nor paraaortic adenopathy. GI: There is no evidence of bowel obstruction, free air, nor abscess. PELVIS: GI: The appendix is surgically absent.No evidence of sigmoid diverticulitis. LYMPH NODES: There is no intrapelvic nor inguinal adenopathy. REPRODUCTIVE: Uterus and ovaries appear unremarkable. URINARY BLADDER: No calculi nor obvious masses evident OSSEOUS: No fractures and no significant osseous lesions. Sclerotic density in the anterior aspect L4 vertebral body is unchanged from CT scan of 1 year ago an d is probably a benign bone island. No additional bone lesions evident. IMPRESSION: 1. Previous appendectomy and cholecystectomy. Biliary tree is not dilated. There is no evidence of bowel obstruction, free intraperitoneal air, nor abscess. 2. Midline umbilical region hernia as described above. Does not contain bowel loops at this time of image acquisition. 3. No inguinal hernia identified. 4. RADIATION DOSE DELIVERED: 765.8mGy.cm Total DLP DATA REPOSITORY: All CT scans at this facility are submitted to the National Radiology Data Registry (NRDR) Dose Index Registry (DIR) with the [employer] ([employer]). RADIATION OPTIMIZATION: All CT scans at this facility use at least one of these dose optimization te chniques: automated exposure control; mA and/or kV adjustment per patient size (includes targeted exa ms where dose is matched to clinical indication); or iterative reconstruction.
== END ==
PROVIDERS: PCP Nurse Practitioner Adult Health; Visit Provider Surgery
DX: K43.2 Incisional hernia without obstruction or gangrene (principal)
CPT/HCPCS: 74177; J3490

== ENCOUNTER 2024-07-17 06:39 | Day surgery (SDC) | payer MEDICAID, SELFPAY ==
--- NOTE | 2024-07-16 19:53 | W.PM.DSUDISC ---
Date of service: 07/17/24 Discharge Plan Disposition Patient Disposition: Home Condition: Good Discharge Details Reason For Visit: recurrent umbilical hernia Attending Provider: Frank Love Primary Care Provider: Diana Pitts Home Meds and New Rx's Prescriptions: Continued flaxseed oil 1,000 mg capsule 1,000 mg PO DAILY Rx Instructions: administer with a meal herbal drugs Capsule PO serapeptase PO ebv support PO l plus PO magnesium PO .qd Probiotic 3 billion cell capsule 3,000 mmu cells PO DAILY Rx Instructions: administer with a meal cholecalciferol (vitamin D3) 25 mcg/drop ( 1,000 unit/drop) drops 1,000 unit PO DAILY levonorgestrel-ethinyl estrad 0.1-20 mg-mcg tablet 1 tab PO DAILY Qty: 84 4RF Rx Instructions: Skip the placebo pills and start the next pack right away to use in a continuous fashion. acetaminophen 500 mg Tablet 500 mg PO Q6H PRN ibuprofen 200 mg Tablet 600 mg PO Q6H PRN methadone 6 mg PO DAILY Discharge Instructions Instructions: Abdominal Hernia Repair, Laparoscopic Surgery Additional Instructions: Susan, I am very optimistic that we have cured your hernia problems. The previous mesh that we used was actually still in the correct location, and the hernia that you have been feeling recently appears to have arisen at the top part of this. It certainly possible that that older mesh was not adequately secured, but I think the more likely explanation is that this hernia just involved from a small fascial defect it was not appreciable at the time that we repaired the other 1. It was probably there the whole time, and I suspect it was one of the port sites from either your gallbladder or appendix surgery. It probably just opened up over time as it was the most vulnerable area after we put the mesh and below it to support that portion. There was a little bit of fat within the hernia today, that was easily reduced out. I cleaned up the fascial edge, which is the edge of the top layer that needs to be back together. And I did actually close this with some stitches that should resolve that issue. And like we talked about, using the laparoscope, I did see another mesh underneath of that repair in order to buttress all of this, and hopefully prevent any other issues in the long run. Everything else within your belly looks very good, and for all that you have been through, I do not think this will cause any other long-term issues. Similar to your previous experiences, be careful and thoughtful over the next week or 2 as everything heals and settles in. Certainly, call me if you need anything at all. Otherwise, I will see you at your postoperative visit. 1. Resume all of your regular medications. 2. Use ice packs over any sites of pain or swelling. 3. Okay to use [id number] Tylenol and ibuprofen. I sent probably recommended last time, usually alternate these every 6 hours for the first 2 days, right around the clock. Then transition over to using them as needed. Use the prescription for tramadol if needed for more severe pain. I do not recall if this caused any constipation for the last time, but if that is the case, adding a stool softener over the next few days is probably a good strategy as well. 4. Leave bandages in place for 24 hours, then remove. 5. Shower with warm soapy water. Pat dry. Use Band-Aids if needed to protect your clothing, or if you find that your clothing is irritating the incision sites. 6. No soaking or tub baths until I see you in the office. 7. No heavy lifting until I see you in the office. 8. Call the office (or go directly to the emergency room after hours) if you notice any of the following: Develop chills (warm to touch), or if you have a thermometer and your temperature is above 101 Difficulty breathing or difficultly swallowing Persistent vomiting Any bleeding ? exceeding one tablespoon 9. Call your physician if the site where your intravenous was started becomes red, swollen, painful, and warm to touch. Referrals: Frank Love MD [ [facility] STAFF PHYSICIAN] - Activity:: no heavy lifting Remove Dressings/Wound Care:: 24 hours Shower/Bathe:: 24 hours Diet:: As Tolerated Discharge Orders Discharge Orders: Discharge Order (Routine); Ordered 07/16/24 Ordered By: Frank Love DS: Diagnosis Discharge Diagnosis (1) Recurrent umbilical hernia: Status: Acute Asessment and Plan: Outpatient postoperative follow-up
--- NOTE | 2024-07-16 19:57 | W.PM.OP ---
Operative Note Operative Note PRE-OP DIAGNOSIS: Recurrent umbilical hernia POST-OP DIAGNOSIS: other (ventral hernia) PROCEDURE: Laproscopic umbilical hernia repair with mesh SURGEON: Frank Love EMERGENCY ROOM PHYSICIAN ASSISTANT: Augsutina Chamberlain ANESTHESIA TYPE: General LMA/ETT Refer to Anesthesia Record ESTIMATED BLOOD LOSS: 25 PATHOLOGY: none sent COMPLICATIONS: None Patient was transported to: PACU Patient's condition: stable Implants: Ventralight ST mesh Indications: Courtney is a 38-year-old woman who is undergone laparoscopic cholecystectomy followed by laparoscopic appendectomy, and an open umbilical hernia repair. Unfortunately, she has developed another hernia adjacent to her umbilicus. She has pain associated with this. Findings: Approximately 5 cm x 3 cm supraumbilical ventral hernia. Procedure Description: Courtney was brought back to the operating room, and assisted onto the OR table. Great care was taken to pad and support her appropriately. General endotracheal anesthesia was induced in the usual fashion. Next, the left arm was tucked being thoughtful of positioning. A Hi urinary catheter was then inserted. The anterior abdominal wall was then prepped and draped. I made a small incision in the left upper quadrant, and under the vision of a 5 mm optical viewing port, established pneumoperitoneum. 5 mm 30 degree scope was reintroduced, and underlying viscera was examined. It was all healthy and normal-appearing. Turned my attention to the area around the umbilicus. There was clearly a defect in the fascia here, which contained some greater omentum. There were some filmy adhesions along the caudal of this as well. Next, under the vision of the scope, 12 mm port was placed quite lateral in the left abdominal wall. LigaSure device was then used to mobilize the omentum out of the hernia defect, and to dissect the underlying adhesions. I was able to clearly identify the mesh from the previous umbilical hernia repair. It actually appears to be in the appropriate location, and well incorporated. The fascial defect causing issues today are on the cephalad aspect of this. Given the appearance, I suspect this was probably an intrinsic weak spot of the fascia, perhaps from previous port site that was probably exploited after the implantation of the mesh located inferior to it. I dissected all of the fascial edges clear, ensuring that the hernia sac was completely emptied and mobilized. I then performed bilateral laparoscopic TAP blocks. I then placed 2 fascial approximation sutures using a Neno Lira device using 0 PDS in interrupted fashion. Once these were in place, the fascial edges were sounded and measured against the anterior abdominal wall. The defect was approximately 5 cm top to bottom by approximately 3 cm wide prior to closure therefore, I selected an [address] patch to be used as an intraperitoneal underlay to the fascial closure. This was delivered by way of the 12 mm port. The echo positioning system was used to bring it up towards the anterior abdominal wall to make sure that there was adequate coverage. Once this was completed, the fascia was reapproximated. Another 5 mm port was then added to the left abdomen in order to properly fix the mesh. The mesh was brought up to the anterior abdominal wall, and the four cardinal points were tacked in place. The positioning system was then removed, and the remainder of the circumference of the mesh was secured. Once this was complete, the 12 mm port was removed, and the Neno Lira wound closure device was used to close this defect with 0 PDS suture. The remaining ports were removed, and the pneumoperitoneum was released. Incision sites were irrigated clean, and the skin was reapproximated with subcuticular stitches. Hi catheter was removed, Susan was extubated and transferred to the recovery unit. Date of Procedure: 07/17/24
[2024-07-17] VITALS (27 sets, daily range): BP systolic 102–173; BP diastolic 72–112; PULSE 60–87; RESP 10–24; TEMP 36.2–36.8; O2SAT 94–99; BMI 30.9
[2024-07-17] MEDS: Acetaminophen 500 MG TAB 1000 MG PO (07:05)
[2024-07-17] MEDS: Gabapentin 300 MG CAP 600 MG PO (07:05)
[2024-07-17] MEDS: Celecoxib 200 MG CAP PO (07:05)
--- NOTE | 2024-07-17 07:05 | W.ANESPRE ---
General Info Date of Service Date Performed: 07/17/24 Height: 5 ft 1 in Weight: 74.1 kg Body Mass Index (BMI): 30.9 Surgical Procedure: Operation Date: 07/17/24 07:40 Proposed Procedure Side Surgeon p Hernia Umbilical Laparoscopic w/Mesh Frank Love MD Meds Allergies and Home Medications Allergies Allergy/AdvReac Type Severity Reaction Status Date / Time No Known Allergies Allergy Verified 07/17/24 06:59 Home Medication ?Medication ?Instructions ?Recorded lactobacillus combination no.4 3 3,000 mmu cells PO DAILY 01/13/21 billion cell capsule (Probiotic) magnesium PO .qd 01/13/21 cholecalciferol (vitamin D3) 25 1,000 unit PO DAILY 03/10/21 mcg/drop (1,000 unit/drop) oral drops flaxseed oil 1,000 mg capsule 1,000 mg PO DAILY 03/28/22 acetaminophen 500 mg tablet 500 mg PO Q6H PRN 05/20/22 ibuprofen 200 mg tablet 600 mg PO Q6H PRN 05/20/22 methadone 6 mg PO DAILY 03/31/23 ebv support PO 03/15/24 herbal drugs cap PO 03/15/24 l plus PO 03/15/24 serapeptase PO 03/15/24 levonorgestrel-ethinyl estradiol 1 tab PO DAILY #84 tabs 04/09/24 0.1 mg-20 mcg tablet Current Visit Medications: Current Medications Generic Name Dose Route Start Last Admin Trade Name Freq PRN Reason Stop Dose Admin Acetaminophen 1,000 mg 07/17/24 06:00 Acetaminophen 500 Mg Tab PO 08/15/24 23:59 PREOP TARAS Celecoxib 200 mg 07/17/24 06:00 Celecoxib 200 Mg Cap PO 08/15/24 23:59 PREOP TARAS Gabapentin 600 mg 07/17/24 06:00 Gabapentin 300 Mg Cap PO 08/15/24 23:59 PREOP TARAS Hydromorphone HCl 0.2 mg 07/16/24 19:58 Hydromorphone 2 Mg/Ml Syr IVP 08/15/24 19:57 Q1H PRN PRN Ringer's Solution 1,000 mls @ 80 mls/hr 07/17/24 06:00 IV 08/15/24 23:59 INFUSION TARAS Cefazolin Sodium/Dextrose 2 gm in 50 mls @ 100 mls/hr 07/17/24 06:00 Ancef Duplex IVPB 08/15/24 23:59 PREOP TARAS IV Miscellaneous Supplies 1 each 07/17/24 06:00 Iv Access IV 08/15/24 23:59 DIRECTED TARAS Sodium Chloride 0 ml 07/17/24 06:00 Normal Saline Flush 10 Ml Syr IV 08/15/24 23:59 PRN PRN Sodium Chloride 0 ml 07/17/24 06:00 Normal Saline 10 Ml Vial IJ 08/15/24 23:59 DIRECTED PRN Sterile Water 0 ml 07/17/24 06:00 Water,Injection,Sterile 10 Ml Vial IJ 08/15/24 23:59 DIRECTED PRN Tramadol HCl 50 mg 07/16/24 19:58 Tramadol 50 Mg Tab PO 08/15/24 19:57 Q6H PRN PRN Pain PFSH Active Problems Active Problems: Problem Status Onset Code Pain in right toe(s) Acute ~12/2023 M79.674 Nicotine dependence Acute F17.200 Recurrent umbilical hernia Acute K42.9 Esophageal polyp Acute K22.81 Abdominal pain Acute R10.9 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 Dilation and curettage Miscarriage 2005 ETOP Jan 2023 Tobacco Smoking/Tobacco Use Status: Current-Occasional Tobacco Type: cigarettes Smoking cigarettes per day: 4 Passive smoking exposure: No Alcohol Alcohol Intake: never Substance Use Substance use: Current Sobriety Substance use type: former substance user Prental History History 4 Para Hx # Term Pregnancies 1 Multiple births Hx # Pregnancies Ectopic pregnancies AB induced 1 Hx Number of Living Children 1 AB spontaneous 2 Past Pregnancies Del. Date GA/Weeks # Preg Succ Route Wgt Sex Labor Lgth Anesthesia Location Prov [facility] 08/06/17 40 No Yes Male Layla Mady - [facility] 01/17/23 Delivery Date: 08/06/17 Last Updated by: Valencia López MD [facility] - Cat 2 FHT Delivery Date: 01/17/23 Last Updated by: Valencia López MD [facility] Vital Signs and Lab Results Vital Signs Most Recent Vital Signs in EMR: Most Recent Vital Signs Temp Pulse Resp BP Pulse Ox 36.8 C 88 16 117/73 97 07/17/24 06:50 07/17/24 06:50 07/17/24 06:50 07/17/24 06:50 07/17/24 06:50 Point of Care Results Point of Care Results: POC- Test(urine) Negative 07/17/24 06:59 Lab Results Blood Type / Crossmatch: No Data to Display Complete Blood Count: No Data to Display Complete Metabolic Panel: No Data to Display Liver Function Panel: No Data to Display Coagulation Panel: No Data to Display Cardiac Panel: No Data to Display Arterial Blood Gas: No Data to Display Venous Blood Gas: No Data to Display Pancreas Panel: No Data to Display Thyroid Panel: No Data to Display Infectious Disease: No Data to Display Blood Cultures: No Data to Display Toxicology Panel: No Data to Display Panel: No Data to Display Anesthesia Assessment and Plan Anesthesia History Personal History: No History of Anesthesia Complications Family History: No Family History of Anesthesia Complications Exercise Tolerance Exercise Tolerance: Metabolic Equivalents>4 Pertinent Negatives Pertinent Negatives: No Symptoms of GERD Cardiac & Pulmonary Exam Cardiac Exam: Normal S1/S2 Heart Sounds Pulmonary Exam: Clear Bilateral Breath Sounds Implantable Cardiac Device Does patient have a Pacemaker or an ICD?: No Airway Exam Known Difficult Airway: No Mallampati Class: 2 Mouth Opening: Normal (> 3cm) Thyromental Distance: Greater than 3 cm Neck Range of Motion: Full ROM Neck Circumference: Normal Teeth Condition: Normal Dentition ASA Classification ASA Score: ASA 2 Emergency Case?: No NPO Status NPO Status: NPO Clears >2 hours, Solids >8 hours Status Status: Negative HCG Anesthesia Plan Resuscitation Status: Full Code Anesthesia Technique: General Anesthesia Airway Planned: Endotracheal Tube Monitors Used: Standard Monitors
[2024-07-17] MEDS: Lactated Ringers 1,000 ML 80 ML IV (07:06)
[2024-07-17] MEDS: ceFAZolin 2 GM/50 ML BAG IVPB (07:44)
[2024-07-17] MEDS: Bupivacaine LIPOSOME/PF 133 MG/10 ML VIAL IJ (08:19)
[2024-07-17] MEDS: Bupivacaine 0.5% Pres-Free 30 ML VIAL (08:19)
[2024-07-17] MEDS: fentaNYL 100 MCG/2 ML VIAL IVP ×2 (09:39→10:04)
[2024-07-17] MEDS: traMADol 50 MG TAB PO (11:09)
--- NOTE | 2024-07-17 11:40 | W.ANESPOSTOP ---
Postoperative Evaluation Date, Time and Location Date Performed: 07/17/24 Time Performed: 11:40 Patient Location: Day Surgery Unit Vital Signs Most Recent Imported Vital Signs: Most Recent Vital Signs Temp Pulse Resp BP Pulse Ox 36.4 C L 76 16 102/87 95 07/17/24 11:31 07/17/24 11:31 07/17/24 11:31 07/17/24 11:31 07/17/24 11:31 Pain Score Most Recent Pain Score: Most Recent Pain Score Pain Level 4 07/17/24 11:31 Assessment Mental Status: Awake (Alert & Oriented to Patient Baseline) Airway and Respiratory Function: Patent airway with normal (patient baseline) respiratory exam Cardiovascular Function: Hemodynamically Stable Hydration Status: Adequately Hydrated Nausea & Vomiting: No Nausea or Vomiting Pain: Pain is tolerable per patient Peripheral Nerve Block: Patient did not receive a nerve block
== END 2024-07-17 11:57 | disposition home or self-care (01) ==
LOC: SUR 06:39
PROVIDERS: PCP Nurse Practitioner Adult Health; Visit Provider Surgery
PROC: (CPT 49650; principal; 2024-07-17 07:30)
DX: K42.9 Umbilical hernia without obstruction or gangrene (principal); K43.9 Ventral hernia without obstruction or gangrene
CPT/HCPCS: 49615; 81025; C1781; J0665; J0666; J0690; J1100; J1790; J2250; J2405; J2704; J3010